=== PATIENT | female | born 1960 | race Caucasian/White ===

== ENCOUNTER 2016-08-28 11:41 | Inpatient (IN) | payer MEDICAID ==
[2016-08-28] VITALS (13 sets, daily range): BP systolic 98–150; BP diastolic 40–136
[~2016-08-28] VITALS: Ht 160 cm; Wt 61.2 kg
--- NOTE | 2016-08-28 11:58 | NUR ---
TOYA FROM HOME DT HIGH BLOOD SUGAR. PER REPORT PATIENT IS DIABETIC AND HAS NOT BEEN COMLIANT WITH INSULIN, PATIENT IS AWAKE, HOWEVER PT APPEARS IN MILD DISTRESS. SATING 100% ON ROOM AIR. SKIN IS WARM TO TOUCH AND NON DIAPHORETIC. PATIENT IS AFEBRILE. VSS. GOWNED AND PLACED PT ON TELE MONITOR,. PEDGOYO FOOTE
[2016-08-28] MEDS ORDERED: IV NS 0.9% 1,000 ML ONE ×3 (12:41→15:38)
[2016-08-28] MEDS ORDERED: IV NS 0.9% 1,000 ML BAG IV ONE ×4 (13:00→17:30)
--- NOTE | 2016-08-28 13:00 | NUR ---
PT ON BED, VSS
[2016-08-28] MEDS ORDERED: GABA-534 PO (13:47)
[2016-08-28] MEDS ORDERED: METO25TA20 PO (13:47)
[2016-08-28] MEDS ORDERED: TICA90TA PO (13:47)
[2016-08-28] MEDS ORDERED: LEVO112T2 PO (13:47)
[2016-08-28] MEDS ORDERED: DULO20CA18 PO (13:47)
[2016-08-28] MEDS ORDERED: ASPI-991 PO (13:47)
[2016-08-28] MEDS ORDERED: ISOS10TA2 PO (13:47)
[2016-08-28] MEDS ORDERED: ATOR20TA PO (13:47)
--- NOTE | 2016-08-28 13:49 | NUR ---
CALLED NURSING ENTERTAINER OR VARIETY ARTIST FOR M/S BED
[2016-08-28 14:05] LABS: BASOPHILS # (AUTO) 0.1 /CMM (0.0-0.2); BASOPHILS % (AUTO) 0.3 % (0.0-2.0); EOSINOPHILS % (AUTO) 0.1 % (0.0-6.0); HEMATOCRIT 46 % (33-45); LYMPHOCYTES # (AUTO) 1.2 /CMM (0.8-4.8); LYMPHOCYTES % (AUTO) 4.5 % (20.0-44.0); MEAN CORPUSCULAR HEMOGLOBIN 30 PG (26.0-33.0); MEAN CORPUSCULAR HGB CONC 33 g/dl (31.0-36.0); MEAN CORPUSCULAR VOLUME 92 fL (82-100); MONOCYTES # (AUTO) 1.8 /CMM (0.1-1.30); MONOCYTES % (AUTO) 6.6 % (2.0-12.0); NEUTROPHILS # (AUTO) 24.4 /CMM (1.8-8.9); NEUTROPHILS % (AUTO) 88.5 % (43.0-81.0); PLATELET COUNT (AUTO) 433 /CMM (150-450); RDW COEFFICIENT OF VARIATION 12.9 (11.5-15.0); RED BLOOD CELL COUNT(AUTO) 4.96 MIL/uL (4.0-5.2); WHITE BLOOD COUNT (AUTO) 27.5 K/uL (4.3-11.0)
[2016-08-28 14:21] LABS: ALBUMIN 4.3 g/dL (3.4-5.0); BILIRUBIN,DIRECT 0.2 mg/dL (0.0-0.2); BILIRUBIN,TOTAL 1.2 mg/dL (0.2-1.0); CALCIUM, SERUM 9.6 mg/dL (8.5-10.1); TOTAL PROTEIN, SERUM 7.5 g/dL (6.4-8.2)
[2016-08-28 14:29] LABS: TROPONIN I 4.242 ng/mL (0.00-0.056)
[2016-08-28 14:32] LABS: CREATININE 1.5 mg/dL (0.6-1.3)
[2016-08-28 14:36] LABS: POTASSIUM 5.4 mmol/L (3.5-5.1); PROTHROMBIN TIME 10.7 SECS (9.5-12.7)
[2016-08-28] MEDS ORDERED: ASPIRIN 81 MG TAB.CHEW ONE (14:51)
[2016-08-28] MEDS ORDERED: CEFTRIAXONE 1GM BAG (ER ONLY) 50 ML IV ONE ×2 (14:51→15:00)
[2016-08-28] MEDS ORDERED: IV SET PRIMARY PUMP SET 1 EA INFUS.SET MC ONE ×3 (14:52→19:55)
[2016-08-28] MEDS ORDERED: ASPIRIN 81 MG TAB.CHEW PO ONE (15:00)
--- NOTE | 2016-08-28 15:21 | NUR ---
ICU OVERFLOW 103
[2016-08-28] MEDS ORDERED: INSULIN REGULAR, HUMAN 100 UNIT in IV NS 0.9% 99 ML IV PRN ×4 (15:30→16:30)
--- NOTE | 2016-08-28 15:31 | NUR ---
REPORT GIVEN TO ZELDA PEREZ FOR CONTINUITY OF CARE
[2016-08-28 15:41] LABS: APPEARANCE,URINE SL CLOUDY (CLEAR); BILIRUBIN,URINE NEGATIVE (NEGATIVE); BLOOD, URINE 1+ Ery/uL (NEGATIVE); COLOR,URINE YELLOW (YELLOW); KETONES,URINE 3+ (NEGATIVE); LEUKOCYTE ESTERASE ,URINE NEGATIVE (NEGATIVE); NITRITE, URINE NEGATIVE (NEGATIVE); PH,URINE 5.5 (5.0-8.0); PROTEIN,URINE NEGATIVE (NEGATIVE); UGLUCOSE 3+ mg/dL (NEGATIVE); UROBILINOGEN,URINE 0.2 EU/dL (0.2)
[2016-08-28 15:51] LABS: BACTERIA,URINE None seen /HPF (None Seen); SQUAMOUS EPITHELIAL CELL,UR Few /HPF (None Seen); WBC,URINE 0-2 /HPF (0-3)
--- NOTE | 2016-08-28 15:59 | NUR ---
PATIENT TRASNPORTED TO ICU,. INSULIN DRIPONGOING. VSS.
--- NOTE | 2016-08-28 16:10 | NUR ---
TERRITORY SALES MANAGER RECEIVED PATIENT FROM THE ER. PATIENT IS ALERT ONLY TO SELF. MODERATE ANXIETY AND AGITATION NOTED. AFEBRILE. SINUS TACH ON MONITOR. STABLE BP. INSULIN GTT RUNNING. REPORT RECEIVED. WILL CONTINUE TO MONITOR AND PROVIDE CARE.
[2016-08-28] MEDS ORDERED: IV NS 0.9% 1,000 ML IV PRN ×2 (16:19→19:23)
[2016-08-28] MEDS ORDERED: ONDANSETRON HCL/PF 4 MG/2 ML VIAL IVP PRN (16:30)
[2016-08-28] MEDS ORDERED: Z GUARD REMEDY 2 OZ OINT TP PRN (16:30)
[2016-08-28] MEDS ORDERED: HYDROCODONE/APAP 5/325MG 1 EACH TABLET PO PRN (16:30)
[2016-08-28] MEDS ORDERED: MAG HYDROX/AL HYDROX/SIMETH 30 ML UDC PO PRN (16:30)
[2016-08-28] MEDS ORDERED: IV D5/ 0.9% NACL 1,000 ML IV PRN (16:30)
[2016-08-28] MEDS ORDERED: MAGNESIUM HYDROXIDE 30 ML UDC PO PRN (16:30)
[2016-08-28] MEDS ORDERED: ACETAMINOPHEN 325 MG TABLET PO PRN (16:30)
[2016-08-28] MEDS ORDERED: ZOLPIDEM TARTRATE 5 MG TABLET PO PRN (16:30)
[2016-08-28] MEDS: GABAPENTIN 300 MG CAPSULE PO SCH (17:00)
[2016-08-28] MEDS: TICAGRELOR 90 MG TABLET PO SCH (17:00)
[2016-08-28] MEDS: BLOOD SUGAR DIAGNOSTIC 1 EACH STRIP IN SCH ×7 (17:12→23:00)
[2016-08-28] MEDS ORDERED: SODIUM BICARBONATE SYR 50 MEQ/50 ML DISP.SYRIN IV ONE ×3 (17:30→23:30)
[2016-08-28] MEDS ORDERED: ENOXAPARIN SODIUM 40 MG/0.4 ML DISP.SYRIN SQ SCH (18:00)
[2016-08-28 18:18] LABS: CALCIUM, SERUM 8.3 mg/dL (8.5-10.1); CREATININE 1.3 mg/dL (0.6-1.3); POTASSIUM 4.4 mmol/L (3.5-5.1)
--- NOTE | 2016-08-28 18:41 | NUR ---
DISTRICT MANAGER PATIENT NOTED TO BE ON RESPIRATORY DISTRESS. PATIENT NOTED TO HAVE PINKISH SECRETIONS FROM THE MOUTH. O2 SATURATION NOTED TO BE IN MID 80S DESPITE NASOTRACHEAL SUCTIONING. STAT ABG ORDERED. RECEIVED ORDERS FROM MD FOR INTUBATION DUE TO ABNORMAL ABG.
--- NOTE | 2016-08-28 19:01 | NUR ---
ROLL WINDER PATIENT WAS TRANSFERRED TO MAIN ICU UNIT INTUBATED ON ACLS PROTOCOL. NO COMPLICATIONS DURING TRANSFER. REPORT GIVEN TO RECEIVING RN FOR CONTINUITY OF CARE.
[2016-08-28] MEDS ORDERED: ETOMIDATE 2 MG/ML VIAL IV ONE (19:45)
[2016-08-28] MEDS ORDERED: ROCURONIUM BROMIDE 50 MG/5 ML IV ONE (19:45)
[2016-08-28] MEDS ORDERED: HEPARIN SODIUM, PORCINE 5000 UNITS/1 ML VIAL IV ONE (20:00)
[2016-08-28] MEDS: HEPARIN INFUSION/D5W 500 ML IV PRN (20:26)
[2016-08-28] MEDS: PROPOFOL 100 ML IV PRN (20:44)
--- NOTE | 2016-08-28 21:00 | NUR ---
MIXER OPERATOR VACUUM PAN SALT NOTES RECEIVED PT IN BED, S/P INTUBATION. SEDATED. ON VENT VIA 7.5 ETT, 23 CM AT LIP. TELE READS ST AT 114 BPM. OGT INSERTED AND VERIFIED BY 2ND RN. SIMMONS CATH IN PLACE, DRAINING WELL. IV SITES AT LEFT AC 20G AND RIGHT AC 18G. RUNNING DIPRIVAN, HEPARIN AND INSULIN. INSULIN RATE FORMULA IS (BG x 1.5)/100 UNITS/HR. HEPARIN TITRATION ACCORDING TO ACS PROTOCOL. HOB ELEVATED, SIDE RAILS X3, TURNED AND REPOSITIONED. BODY TEMP OF 96.0, DIONY HUGGER IN PLACE. BILATERAL SOFT WRIST IN PLACE FOR SAFETY.
[2016-08-28] MEDS: ATORVASTATIN 10 MG TABLET PO SCH (21:29)
--- NOTE | 2016-08-28 21:29 | NUR ---
PT INTUBATED BY MIRIAN COOPER WITH A 7.5 ETT @23CM DUE TO DECREASED SPO2 AND POST ABG RESULTS. AMBU BAG AT BEDSIDE ALARMS SET AND AUDIBLE. SUCTIONED A MODERATE AMOUNT OF FROTHY PINK SECRETIONS BREATH SOUNDS EQUAL BILATERAL COARSE PT RECEIVING NO BREATHING TX AT THIS TIME Addendum: 08/28/16 at 2131 by IAN CHAVEZ RT Amended: Links added.
--- NOTE | 2016-08-28 22:00 | NUR ---
PLATING FOREMAN NOTES US TECH AT BEDSIDE, ABD US IN PROGRESS,
[2016-08-28 22:12] LABS: POTASSIUM 4.2 mmol/L (3.5-5.1)
[2016-08-28 22:13] LABS: CREATININE 1.2 mg/dL (0.6-1.3)
[2016-08-28 22:34] LABS: ABG OXYGEN SATURATION 92.9 % (92.0-98.5); ABG PCO2 30.6 mmHg (35.0-45.0); ABG PH 7.176 (7.350-7.450); ABG PO2 63.7 mmHg (75.0-100.0); AaDO2 330.4 mmHg; COHb 1.3 % (0.5-1.5); MetHb 0.7 % (0.0-1.5); PEEP,BG 5 cm H2O; SITE, ABG Right Radial; VENT MODE, BG AC 16 450 60% +5; VT, ABG 450 mL
--- NOTE | 2016-08-28 23:00 | NUR ---
CANDY POLISHER NOTES CONTACTED DR FAROOQ AND MADE AWARE OF AGB AND BLOOD GLUCOSE LEVELS. 2 AMPS OF BICARB PUSH AND D5 1/2NS AT 75 ML/HR IF BLOOD GLUCOSE <250 MG/DL ORDERED.
[2016-08-28] MEDS ORDERED: SODIUM BICARBONATE SYR 50 MEQ/50 ML DISP.SYRIN ONE (23:04)
[2016-08-28] MEDS ORDERED: IV NS 0.9% 250 ML IV PRN (23:30)
[2016-08-28] MEDS ORDERED: IV D5/0.45 NACL 1,000 ML IV PRN (23:30)
[2016-08-29] VITALS (87 sets, daily range): BP systolic 82–134; BP diastolic 35–59
[2016-08-29] MEDS ORDERED: IV D5/0.45 NACL 1,000 ML IV ONE (00:18)
[2016-08-29] MEDS: BLOOD SUGAR DIAGNOSTIC 1 EACH STRIP IN SCH ×12 (00:28→17:19)
--- NOTE | 2016-08-29 02:44 | NUR ---
CUSTOMER ACCOUNT SPECIALIST NOTES 05/01/16 0230 PTT: 64. NO HEPARIN RATE CHANGE. Addendum: 08/29/16 at 0253 by RAYNE RIVERA RN DATE CORRECTION: 08/29/16
[2016-08-29 02:45] LABS: CALCIUM, SERUM 7.9 mg/dL (8.5-10.1); CREATININE 1.2 mg/dL (0.6-1.3); POTASSIUM 4.6 mmol/L (3.5-5.1)
[2016-08-29 04:50] LABS: EOSINOPHILS % (AUTO) 0.1 % (0.0-6.0); HEMATOCRIT 45 % (33-45); HEMOGLOBIN 15.3 g/dL (11.5-14.8); LYMPHOCYTES # (AUTO) 0.4 /CMM (0.8-4.8); LYMPHOCYTES % (AUTO) 3.7 % (20.0-44.0); MEAN CORPUSCULAR HEMOGLOBIN 30 PG (26.0-33.0); MEAN CORPUSCULAR HGB CONC 34 g/dl (31.0-36.0); MEAN CORPUSCULAR VOLUME 90 fL (82-100); MONOCYTES # (AUTO) 0.4 /CMM (0.1-1.30); MONOCYTES % (AUTO) 3.4 % (2.0-12.0); NEUTROPHILS # (AUTO) 10.3 /CMM (1.8-8.9); NEUTROPHILS % (AUTO) 92.8 % (43.0-81.0); PLATELET COUNT (AUTO) 260 /CMM (150-450); RDW COEFFICIENT OF VARIATION 13.6 (11.5-15.0); RED BLOOD CELL COUNT(AUTO) 5.06 MIL/uL (4.0-5.2); WHITE BLOOD COUNT (AUTO) 11.1 K/uL (4.3-11.0)
[2016-08-29 05:23] LABS: ALBUMIN 2.5 g/dL (3.4-5.0); BILIRUBIN,TOTAL 0.7 mg/dL (0.2-1.0); CALCIUM, SERUM 8.2 mg/dL (8.5-10.1); CREATININE 1.3 mg/dL (0.6-1.3); MAGNESIUM 1.5 mg/dL (1.8-2.4); PHOSPHORUS 1.1 mg/dL (2.5-4.9); POTASSIUM 3.2 mmol/L (3.5-5.1); TOTAL PROTEIN, SERUM 5.3 g/dL (6.4-8.2)
--- NOTE | 2016-08-29 06:00 | NUR ---
FAMILY CONTACTS NATHALIA (DAUGHTER) [phone] MARICEL () [phone]
--- NOTE | 2016-08-29 07:30 | NUR ---
ETHNOLOGY TEACHER PATIENT IS IN BED. RESTING COMFORTABLY. SEDATED ON DIPRIVAN. INSULIN GTT TITRATED PER PROTOCOL. AFEBRILE. SINUS TACH ON MONITOR. SIMMONS DRAINING TO GRAVITY. TURNED AND REPOSITIONED FOR COMFORT AND WOUND PREVENTION. WILL CONTINUE TO MONITOR AND PROVIDE CARE.
--- NOTE | 2016-08-29 07:46 | NUR ---
CRITICAL LAB TROPONIN 63.422 RECVD ON BEHALF OF PRIMARY RN. DR. FAROOQ ON THE UNIT, RELAYED THE LAB TO HIM AND HE ORDERS FOR STAT EKG. ORDER PLACED AND I NOTIFIED RT ON THE UNIT WHO STATES HE WILL DO THE EKG ONCE THEY ARE DONE WITH LINE PLACEMENT. CURRENTLY PT IS STERILE DRAPED AND IN THE MIDDLE OF PICC INSERTION. DR. FAROOQ AWARE.
[2016-08-29] MEDS ORDERED: FUROSEMIDE 20 MG/2 ML VIAL IV ONE (08:00)
[2016-08-29] MEDS ORDERED: POTASSIUM PHOSPHATE MM 15 MMOL in IV D5W 250 ML IV SCH (08:00)
[2016-08-29] MEDS ORDERED: IV SET PRIMARY PUMP SET 1 EA INFUS.SET MC ONE ×3 (08:09→09:28)
[2016-08-29] MEDS: LEVOTHYROXINE SODIUM 112 MCG TABLET PO SCH (08:10)
[2016-08-29] MEDS: ASPIRIN EC 81 MG TABLET.DR PO SCH (08:10)
[2016-08-29] MEDS: GABAPENTIN 300 MG CAPSULE PO SCH ×3 (08:10→17:24)
[2016-08-29] MEDS: PANTOPRAZOLE 40 MG VIAL IV SCH (08:10)
[2016-08-29] MEDS: PROPOFOL 100 ML IV PRN ×2 (08:14→17:24)
[2016-08-29] MEDS: TICAGRELOR 90 MG TABLET PO SCH ×2 (08:15→17:24)
[2016-08-29 08:29] LABS: ABG BASE EXCESS -2.3 mmol/L; ABG OXYGEN SATURATION 96.4 % (92.0-98.5); ABG PCO2 31.6 mmHg (35.0-45.0); ABG PH 7.438 (7.350-7.450); ABG PO2 78.4 mmHg (75.0-100.0); AaDO2 206.5 mmHg; MetHb 0.6 % (0.0-1.5); O2Hb 94.9 % (94.0-97.0); PEEP,BG 5 cm H2O; SITE, ABG Right Radial; VT, ABG 450 mL
--- NOTE | 2016-08-29 08:51 | NUR ---
SENIOR MANAGEMENT CONSULTANT CLARIFIED WITH THE MANAGER ED THAT PATIENT IS TO RECEIVE ONLY ONE DOSE OF LASIX 40MG. DUPLICATE ORDER BY DRAW IN HAND WAS NOT ADMINISTERED. MANAGER ED AWARE.
[2016-08-29] MEDS ORDERED: METOPROLOL TARTRATE 25 MG TABLET PO SCH (09:00)
[2016-08-29] MEDS ORDERED: ISOSORBIDE DINITRATE (10MG) 10 MG TABLET PO SCH (09:00)
[2016-08-29] MEDS ORDERED: DEXTROSE 50%-WATER 50 ML DISP.SYRIN IV PRN (09:00)
[2016-08-29] MEDS: DULOXETINE HCL 20 MG CAPSULE.DR PO SCH (09:00)
[2016-08-29] MEDS ORDERED: FUROSEMIDE 40 MG/4 ML VIAL IV SCH (09:00)
[2016-08-29] MEDS: INSULIN NPH, HUMAN ISOPHANE 100 UNIT/ML VIAL SQ SCH ×2 (09:30→17:24)
[2016-08-29] MEDS: POTASSIUM PHOSPHATE MM 7.5 MMOL in IV D5W 100 ML IV SCH ×2 (09:30→13:38)
[2016-08-29] MEDS: POTASSIUM CL. PREMIX PERIPHER. 50 ML IV SCH ×4 (09:33→13:38)
[2016-08-29 11:04] LABS: BAND % (MANUAL) 22 % (0.0-5.0); LYMPHOCYTES % (MANUAL) 5 % (16-48); MONOCYTES % (MANUAL) 4 % (0-11.0); NEUTROPHILS % (MANUAL) 69 (42-76)
[2016-08-29] MEDS: Sodium Chloride 77 MEQ in IV 10% DEXTROSE 1,000 ML IV PRN (11:20)
[2016-08-29] MEDS ORDERED: SECONDARY IV SET 1 EA INFUS.SET MC ONE (12:11)
[2016-08-29] MEDS: Magnesium 1GM/D5W 100ML PREMIX 100 ML IV SCH ×2 (12:16→13:38)
[2016-08-29] MEDS: INSULIN REGULAR, HUMAN 100 UNIT/ML 3 ML VIAL SQ PRN ×2 (12:17→17:23)
[2016-08-29] MEDS: CEFTRIAXONE 1 G in IV D5W 50 ML IV SCH (14:18)
[2016-08-29] MEDS: HEPARIN INFUSION/D5W 500 ML IV PRN (20:25)
--- NOTE | 2016-08-29 20:56 | NUR ---
INSURANCE ADVISER NOTES RECEIVED PT IN BED, S/P INTUBATION. SEDATED. ON VENT VIA 7.5 ETT, 23 CM AT LIP. TELE READS ST AT [address] AND CLAMPED[address] SIMMONS CATH IN PLACE, DRAINING WELL. IV SITES AT LEFT AC 20G AND RIGHT AC 18G. PICC AT [place]. RUNNING DIPRIVAN, HEPARIN AND D10 1/2NS. HEPARIN TITRATION ACCORDING TO ACS PROTOCOL, CURRENTLY 900 UNITS/HR. HOB ELEVATED, SIDE RAILS X3, TURNED AND REPOSITIONED. BODY TEMP OF 98.5. BILATERAL SOFT WRIST IN PLACE FOR SAFETY.
[2016-08-29] MEDS: ATORVASTATIN 10 MG TABLET PO SCH (21:00)
--- NOTE | 2016-08-29 22:05 | NUR ---
PT RECEIVED INTUBATED WITH 7.5 ETT SECURED AT 23CM AT THE LIP. NO RESP DISTRESS NOTED. PT TOLERATING VENT SETTINGS. SX'D FOR SML AMT OF THICK WHITE SECRETIONS. VENT ALARMS SET AND AUDIBLE. CORNELL SETH AT [facility]. WILL CONTINUE TO MONITOR. Addendum: 08/29/16 at 2206 by MARIAJOSE TENA RT Amended: Links added.
[2016-08-30] VITALS (54 sets, daily range): BP systolic 83–127; BP diastolic 39–66
[2016-08-30] MEDS: BLOOD SUGAR DIAGNOSTIC 1 EACH STRIP IN SCH ×3 (00:09→12:17)
[2016-08-30] MEDS: INSULIN REGULAR, HUMAN 100 UNIT/ML 3 ML VIAL SQ PRN ×3 (00:11→12:19)
[2016-08-30 03:28] LABS: BASOPHILS % (AUTO) 0.2 % (0.0-2.0); EOSINOPHILS % (AUTO) 0.5 % (0.0-6.0); HEMATOCRIT 39 % (33-45); LYMPHOCYTES # (AUTO) 0.7 /CMM (0.8-4.8); LYMPHOCYTES % (AUTO) 7.3 % (20.0-44.0); MEAN CORPUSCULAR HEMOGLOBIN 30 PG (26.0-33.0); MEAN CORPUSCULAR HGB CONC 34 g/dl (31.0-36.0); MEAN CORPUSCULAR VOLUME 90 fL (82-100); MONOCYTES # (AUTO) 0.5 /CMM (0.1-1.30); MONOCYTES % (AUTO) 5.4 % (2.0-12.0); NEUTROPHILS # (AUTO) 8.8 /CMM (1.8-8.9); NEUTROPHILS % (AUTO) 86.6 % (43.0-81.0); PLATELET COUNT (AUTO) 170 /CMM (150-450); RDW COEFFICIENT OF VARIATION 13.9 (11.5-15.0); RED BLOOD CELL COUNT(AUTO) 4.35 MIL/uL (4.0-5.2); WHITE BLOOD COUNT (AUTO) 10.2 K/uL (4.3-11.0)
--- NOTE | 2016-08-30 04:00 | NUR ---
HYPERION ESSBASE DEVELOPER NOTES 08/30/16 0400 PTT: 77. HEPARIN RATE DECREASED BY 50 UNITS/HR. NEW RATE 850 UNITS/HR. PTT ORDERED AT 1000.
[2016-08-30 04:08] LABS: CALCIUM, SERUM 7.6 mg/dL (8.5-10.1); CREATININE 1.1 mg/dL (0.6-1.3); POTASSIUM 3.1 mmol/L (3.5-5.1)
[2016-08-30 04:12] LABS: MAGNESIUM 2.6 mg/dL (1.8-2.4); PHOSPHORUS 1.6 mg/dL (2.5-4.9)
[2016-08-30 04:22] LABS: TROPONIN I 28.275 ng/mL (0.00-0.056)
--- NOTE | 2016-08-30 08:10 | NUR ---
FINGERPRINT EXPERT RECEIVED PATIENT FROM THE PREVIOUS SHIFT. PATIENT IS IN BED. RESTING COMFORTABLY. NO DISTRESS NOTED. VENT SETTINGS REVIEWED AND VERIFIED. DURING 15 MINUTES SEDATION VACATION, PATIENT OPENED BOTH HER EYES ON HER OWN. UNABLE TO FOLLOW SIMPLE COMMANDS AT THIS TIME. PATIENT TRIED TO REACH HER ETT WITH BOTH HANDS. PATIENT MOVED BOTH HER LEGS AT THIS TIME. PATIENT NOTED TO BE TACHYPNEIC DURING THE SEDATION.
[2016-08-30] MEDS ORDERED: IV SET PRIMARY PUMP SET 1 EA INFUS.SET MC ONE (08:30)
[2016-08-30] MEDS: POTASSIUM CL. PREMIX PERIPHER. 50 ML IV SCH ×4 (08:39→11:01)
--- NOTE | 2016-08-30 08:40 | NUR ---
PATIENT REC'D ORALLY INTUBATED ON [facility] VENT WITH SETTINGS SET PER MD WALDO ORELLANA. VENT ALARMS CHECKED + AUDIBLE. CUFF PRESSURE CHECKED ENVIRONMENTAL SERVICES TECH. ETT SECURE AND IN PROPER POSITION. VENT PLUGGED INTO RED OUTLET. B/S DIM COARSE. SX'D WITH SM/MD OLIVOT PALE SEMITHICK SECRETIONS. PATIENT IN CRITICAL CONDITION. AMBU BAG AT [facility]. CONT CURRENT PLAN OF RESP CARE. Addendum: 08/30/16 at 1404 by LILI REYNA RT Amended: Links added.
[2016-08-30] MEDS: TICAGRELOR 90 MG TABLET PO SCH (08:43)
[2016-08-30] MEDS: PROPOFOL 100 ML IV PRN (08:43)
[2016-08-30] MEDS: GABAPENTIN 300 MG CAPSULE PO SCH ×2 (08:44→12:17)
[2016-08-30] MEDS: LEVOTHYROXINE SODIUM 112 MCG TABLET PO SCH (08:44)
[2016-08-30] MEDS: ASPIRIN EC 81 MG TABLET.DR PO SCH (08:44)
[2016-08-30] MEDS: PANTOPRAZOLE 40 MG VIAL IV SCH (08:44)
[2016-08-30] MEDS: DULOXETINE HCL 20 MG CAPSULE.DR PO SCH (08:44)
[2016-08-30 08:49] LABS: ABG BASE EXCESS 0.3 mmol/L; ABG OXYGEN SATURATION 97.7 % (92.0-98.5); ABG PCO2 34.1 mmHg (35.0-45.0); ABG PH 7.458 (7.350-7.450); ABG PO2 108.9 mmHg (75.0-100.0); AaDO2 173.2 mmHg; COHb 0.9 % (0.5-1.5); MetHb 0.8 % (0.0-1.5); PEEP,BG 5 cm H2O; SITE, ABG Right Radial; VT, ABG 450 mL
[2016-08-30] MEDS ORDERED: INSULIN NPH, HUMAN ISOPHANE 100 UNIT/ML VIAL SQ SCH (09:00)
[2016-08-30] MEDS: Potassium Phosphate meq 11 MEQ in IV D5W 100 ML IV SCH ×2 (10:26→12:17)
[2016-08-30] MEDS: Sodium Chloride 77 MEQ in IV 10% DEXTROSE 1,000 ML IV PRN (13:24)
[2016-08-30] MEDS: CEFTRIAXONE 1 G in IV D5W 50 ML IV SCH (14:37)
--- NOTE | 2016-08-30 15:57 | NUR ---
CARTOON ANIMATOR PATIENT PREPARED FOR TRANSFER. PATIENT IS UNABLE TO SIGN FOR SELF FOR BELONGINGS. UNABLE TO REMOVE THE LEFT HAND RING AT THIS TIME. CHARGE NURSE AND RN SIGNED FOR BELONGINGS. DAUGHTER NATHALIA MADE AWARE. WILL MONITOR.
--- NOTE | 2016-08-30 16:03 | NUR ---
FOUNDATION RELATIONS MANAGER PATIENT LEFT THE FACILITY IN STABLE CONDITIONS.
== END 2016-08-30 16:03 | disposition short-term general hospital (02) | DRG 190 ==
LOC: ER 11:42 → ICUOV 15:40 → ICU 18:57
PROVIDERS: ADMIT Internal Medicine; ATTEND Internal Medicine
PROC: 0BH17EZ Insertion of Endotracheal Airway into Trachea, Via Natural or Artificial Opening (ICD-10-PCS; principal; 2016-08-28)
PROC: 5A1945Z Respiratory Ventilation, 24-96 Consecutive Hours (ICD-10-PCS; principal; 2016-08-28)
PROC: B548ZZA Ultrasonography of Superior Vena Cava, Guidance (ICD-10-PCS; 2016-08-29)
PROC: 02HV33Z Insertion of Infusion Device into Superior Vena Cava, Percutaneous Approach (ICD-10-PCS; 2016-08-29)
DX: I21.4 Non-ST elevation (NSTEMI) myocardial infarction (principal); N17.0 Acute kidney failure with tubular necrosis; J96.01 Acute respiratory failure with hypoxia; I50.21 Acute systolic (congestive) heart failure; G93.41 Metabolic encephalopathy; J18.9 Pneumonia, unspecified organism; E13.10 Other specified diabetes mellitus with ketoacidosis without coma; I11.0 Hypertensive heart disease with heart failure; K80.10 Calculus of gallbladder with chronic cholecystitis without obstruction; D72.829 Elevated white blood cell count, unspecified; E03.9 Hypothyroidism, unspecified; E78.5 Hyperlipidemia, unspecified; E83.39 Other disorders of phosphorus metabolism; F17.200 Nicotine dependence, unspecified, uncomplicated; I25.10 Atherosclerotic heart disease of native coronary artery without angina pectoris; Z79.899 Other long term (current) drug therapy; I50.1 Left ventricular failure, unspecified
CPT/HCPCS: 31720; 36415; 36600; 71010-TC; 76700-TC; 80048-TC; 80053-TC; 80061-TC; 80076-TC; 81000-TC; 82803-TC; 82962-TC; 83605-TC; 83690-TC; 83735-TC; 84100-TC; 84484-TC; 85025-TC; 85730-TC; 87040-TC; 87081-TC; 87086-TC; 93307-TC; 94002-TC; 94003-TC; 94762-TC; 99082-TC; A4606; C1751; C9113; J0696; J1644; J1650; J1815; J1940; J3475; J3480; J3490; J7030; J7060; Z7610

== ENCOUNTER 2023-10-09 19:37 | Emergency (ER) | payer MEDICAID, OTHER ==
[~2023-10-09] VITALS: Ht 154.9 cm; Wt 61.7 kg
[2023-10-09 20:40] LABS: BASOPHILS # (AUTO) 0.1 K/uL (0.0-0.2); BASOPHILS % (AUTO) 1.2 % (0.0-2.0); EOSINOPHILS # (AUTO) 0.2 K/uL (0.0-0.7); EOSINOPHILS % (AUTO) 5.2 % (0.0-6.0); HEMATOCRIT 37 % (33-45); LYMPHOCYTES # (AUTO) 1.1 K/uL (0.8-4.8); LYMPHOCYTES % (AUTO) 22.8 % (20.0-44.0); MEAN CORPUSCULAR HEMOGLOBIN 29 PG (26.0-33.0); MEAN CORPUSCULAR HGB CONC 33 g/dl (31.0-36.0); MEAN CORPUSCULAR VOLUME 87 fL (82-100); MONOCYTES # (AUTO) 0.4 K/uL (0.1-1.30); NEUTROPHILS # (AUTO) 2.9 K/uL (1.8-8.9); NEUTROPHILS % (AUTO) 61.8 % (43.0-81.0); PLATELET COUNT (AUTO) 253 K/uL (150-450); RED BLOOD CELL COUNT(AUTO) 4.19 MIL/uL (4.0-5.2); RED CELL DISTRIBUTION WIDTH 15.6 % (11.5-15.0); WHITE BLOOD COUNT (AUTO) 4.8 K/uL (4.3-11.0)
[2023-10-09 21:01] LABS: CHLORIDE 103 mmol/L (98-107); SODIUM SERUM 135 mmol/L (136-145)
[2023-10-09 21:04] LABS: CARBON DIOXIDE 25 mmol/L (21-32); GLUCOSE 226 mg/dL (74-106)
[2023-10-09 21:10] LABS: ALANINE AMINOTRANSFERASE 20 U/L (12-78); ALBUMIN 3.3 g/dL (3.4-5.0); ALKALINE PHOSPHATASE 146 U/L (46-116); ASPARTATE AMINOTRANSFERASE 15 U/L (15-37); BILIRUBIN,DIRECT 0.2 mg/dL (0.0-0.2); BILIRUBIN,TOTAL 0.6 mg/dL (0.2-1.0); CREATININE 0.8 mg/dL (0.6-1.3); TOTAL PROTEIN, SERUM 6.4 g/dL (6.4-8.2); UREA NITROGEN, BLOOD 13 mg/dL (7-18)
[2023-10-10 04:59] VITALS: BP 127/59; TEMP 97.9; O2SAT 97
== END 2023-10-10 04:59 | disposition short-term general hospital (02) ==
LOC: ER 19:40
DX: I25.10 Atherosclerotic heart disease of native coronary artery without angina pectoris (principal); R07.9 Chest pain, unspecified; I10 Essential (primary) hypertension; E11.9 Type 2 diabetes mellitus without complications; Z95.1 Presence of aortocoronary bypass graft; Z60.2 Problems related to living alone
CPT/HCPCS: 36415; 71045-TC; 80048-TC; 80076-TC; 82962-TC; 84484-TC; 85025-TC

== ENCOUNTER 2023-10-30 19:48 | Emergency (ER) | payer MEDICAID, OTHER ==
[~2023-10-30] VITALS: Ht 152.4 cm; Wt 61.7 kg
[2023-10-30 20:16] VITALS: TEMP 98.3
[2023-10-30 20:29] LABS: BASOPHILS % (AUTO) 0.8 % (0.0-2.0); EOSINOPHILS # (AUTO) 0.3 K/uL (0.0-0.7); EOSINOPHILS % (AUTO) 5.3 % (0.0-6.0); HEMATOCRIT 35 % (33-45); HEMOGLOBIN 11.5 g/dL (11.5-14.8); LYMPHOCYTES # (AUTO) 1.1 K/uL (0.8-4.8); LYMPHOCYTES % (AUTO) 18.3 % (20.0-44.0); MEAN CORPUSCULAR HEMOGLOBIN 29 PG (26.0-33.0); MEAN CORPUSCULAR HGB CONC 33 g/dl (31.0-36.0); MEAN CORPUSCULAR VOLUME 89 fL (82-100); MONOCYTES # (AUTO) 0.5 K/uL (0.1-1.30); MONOCYTES % (AUTO) 9.3 % (2.0-12.0); NEUTROPHILS # (AUTO) 3.8 K/uL (1.8-8.9); NEUTROPHILS % (AUTO) 66.3 % (43.0-81.0); PLATELET COUNT (AUTO) 263 K/uL (150-450); RED BLOOD CELL COUNT(AUTO) 3.94 MIL/uL (4.0-5.2); RED CELL DISTRIBUTION WIDTH 15.3 % (11.5-15.0); WHITE BLOOD COUNT (AUTO) 5.8 K/uL (4.3-11.0)
[2023-10-30 20:53] LABS: CALCIUM, SERUM 9.1 mg/dL (8.5-10.1); CARBON DIOXIDE 27 mmol/L (21-32); CHLORIDE 102 mmol/L (98-107); CREATININE 0.8 mg/dL (0.6-1.3); GLUCOSE 205 mg/dL (74-106); NT-PRO BNP 564 pg/mL (0-125); POTASSIUM 3.2 mmol/L (3.5-5.1); SODIUM SERUM 139 mmol/L (136-145); UREA NITROGEN, BLOOD 11 mg/dL (7-18)
[2023-10-30 20:54] LABS: THYROID STIMULATING HORMONE 1.83 uIU/mL (0.358-3.74)
[2023-10-30 21:00] LABS: MAGNESIUM 1.6 mg/dL (1.8-2.4)
[2023-10-30] MEDS ORDERED: MAG HYDROX/AL HYDROX/SIMETH 30 ML UDC ONE (21:20)
[2023-10-30] MEDS ORDERED: PANTOPRAZOLE 40 MG TABLET.DR PO ONE (21:20)
[2023-10-30] MEDS ORDERED: LIDOCAINE VISCOUS 2% UD 15 ML UDC ONE (21:20)
[2023-10-30] MEDS: PANTOPRAZOLE 40 MG TABLET.DR PO ONE (21:27)
[2023-10-30] MEDS: MAG HYDROX/AL HYDROX/SIMETH 30 ML UDC PO ONE (21:27)
[2023-10-30] MEDS: LIDOCAINE VISCOUS 2% UD 15 ML UDC MM ONE (21:27)
[2023-10-30] MEDS ORDERED: INSULIN GLARGINE,BASAGLAR 100 UNIT/ML INSULN.PEN SQ SCH (21:30)
[2023-10-31] MEDS ORDERED: INSULIN REGULAR, HUMAN 100 UNIT/ML 10 ML VIAL ONE (00:36)
[2023-10-31] MEDS: INSULIN REGULAR, HUMAN 100 UNIT/ML 10 ML VIAL IV ONE (00:41)
[2023-10-31 03:00] VITALS: BP 139/46; O2SAT 96
== END 2023-10-31 05:40 | disposition left against medical advice (07) ==
LOC: ER 19:50
DX: R07.89 Other chest pain (principal); I25.10 Atherosclerotic heart disease of native coronary artery without angina pectoris; I10 Essential (primary) hypertension; J44.9 Chronic obstructive pulmonary disease, unspecified; E10.40 Type 1 diabetes mellitus with diabetic neuropathy, unspecified; Z86.59 Personal history of other mental and behavioral disorders; Z95.5 Presence of coronary angioplasty implant and graft; Z60.2 Problems related to living alone; Z20.822 Contact with and (suspected) exposure to COVID-19
CPT/HCPCS: 99285; 71045; 93005; 85025; 80048; 83735; 36415; 84439; 84443; 84484 ×2; 83880; 87426; 82962; J1815

== ENCOUNTER 2023-11-05 12:52 | Emergency (ER) | payer MEDICAID, OTHER ==
[~2023-11-05] VITALS: Ht 152.4 cm; Wt 65.3 kg
[2023-11-05] MEDS ORDERED: IV NS 0.9% 500 ML BAG IV ONE (13:00)
--- NOTE | 2023-11-05 13:00 | NUR ---
TOYA 79 FROM HOME FOR CP AND PRESSURE X 3 HRS AGO.
[2023-11-05 13:05] VITALS: TEMP 98.8
--- NOTE | 2023-11-05 13:15 | NUR ---
BLOOD DRAWN AND SENT TO LAB
--- NOTE | 2023-11-05 13:21 | NUR ---
Bed 312-1
--- NOTE | 2023-11-05 13:27 | NUR ---
move sheet submitted (CP, stable, Tele)
[2023-11-05 14:02] LABS: BASOPHILS # (AUTO) 0.1 K/uL (0.0-0.2); EOSINOPHILS # (AUTO) 0.3 K/uL (0.0-0.7); EOSINOPHILS % (AUTO) 4.2 % (0.0-6.0); HEMATOCRIT 37 % (33-45); HEMOGLOBIN 11.8 g/dL (11.5-14.8); LYMPHOCYTES # (AUTO) 0.9 K/uL (0.8-4.8); LYMPHOCYTES % (AUTO) 13.8 % (20.0-44.0); MEAN CORPUSCULAR HEMOGLOBIN 29 PG (26.0-33.0); MEAN CORPUSCULAR HGB CONC 32 g/dl (31.0-36.0); MEAN CORPUSCULAR VOLUME 90 fL (82-100); MONOCYTES # (AUTO) 0.6 K/uL (0.1-1.30); MONOCYTES % (AUTO) 8.4 % (2.0-12.0); NEUTROPHILS % (AUTO) 72.6 % (43.0-81.0); PLATELET COUNT (AUTO) 266 K/uL (150-450); RED BLOOD CELL COUNT(AUTO) 4.08 MIL/uL (4.0-5.2); RED CELL DISTRIBUTION WIDTH 14.8 % (11.5-15.0); WHITE BLOOD COUNT (AUTO) 6.9 K/uL (4.3-11.0)
[2023-11-05 14:09] LABS: CALCIUM, SERUM 8.9 mg/dL (8.5-10.1); CARBON DIOXIDE 29 mmol/L (21-32); CHLORIDE 104 mmol/L (98-107); CREATININE 0.8 mg/dL (0.6-1.3); GLUCOSE 210 mg/dL (74-106); POTASSIUM 3.8 mmol/L (3.5-5.1); SODIUM SERUM 143 mmol/L (136-145); UREA NITROGEN, BLOOD 13 mg/dL (7-18)
--- NOTE | 2023-11-05 14:52 | NUR ---
Peer to Peer with Dr Butler at [place] [phone]
[2023-11-05 15:00] VITALS: BP 121/52; O2SAT 96
--- NOTE | 2023-11-05 15:58 | NUR ---
Fax sent to [employer] [facility] [phone]
--- NOTE | 2023-11-05 16:42 | NUR ---
PT needs to go to [facility] Please give report [phone] HOLLIS is charge master coordinator Waiting for transport information
--- NOTE | 2023-11-05 16:50 | NUR ---
[facility] # [id number] [facility] ETA 45 min Called Marcial rn case mgr to confirm
--- NOTE | 2023-11-05 17:05 | NUR ---
report given to yana charge nurse for er
--- NOTE | 2023-11-05 18:14 | NUR ---
PATIENT PICKED UP BY [facility] STAFF AND REPORT WAS GIVEN FOR TRANSFER TO [facility]
== END 2023-11-05 18:16 | disposition short-term general hospital (02) ==
LOC: ER 12:54
DX: I25.10 Atherosclerotic heart disease of native coronary artery without angina pectoris (principal); R61 Generalized hyperhidrosis; E10.40 Type 1 diabetes mellitus with diabetic neuropathy, unspecified; I10 Essential (primary) hypertension; J44.9 Chronic obstructive pulmonary disease, unspecified; Z95.1 Presence of aortocoronary bypass graft; Z86.59 Personal history of other mental and behavioral disorders; Z60.2 Problems related to living alone
CPT/HCPCS: 99284; 93005; 85025; 80048; 36415; 84484 ×2; 82962; J7040

== ENCOUNTER 2024-04-03 05:17 | Inpatient (IN) | payer OTHER ==
[2024-04-03] VITALS (45 sets, daily range): BP systolic 98–134; BP diastolic 34–65; TEMP 96.9–98; O2SAT 96–100
[~2024-04-03] VITALS: Ht 152.4 cm; Wt 49.9 kg
[2024-04-03] MEDS ORDERED: PIPERACI/TAZO 3.375GM/D5W 50ML PB IV ONE (05:40)
[2024-04-03] MEDS: IV NS 0.9% 1,000 ML BAG IV ONE ×2 (05:44→07:10)
[2024-04-03] MEDS: PIPERACILLIN /TAZOBACTAM 3.375 G in IV D5W 50 ML IV ONE (05:44)
[2024-04-03] MEDS ORDERED: VANCOMYCIN 1 GM /D5W 250 ML PB IV ONE (06:03)
[2024-04-03 06:15] LABS: SITE, VBG RIGHT BRACHIAL; VBG BASE EXCESS -25.8 mmol/L (-2.0-3.0); VBG COHb 0.3 % (0.5-1.5); VBG HCO3 4.2 mmol/L (22.0-29.0); VBG MetHb 0.4 % (0.5-1.5); VBG O2Hb 96.8 % (0-79); VBG OXYGEN SATURATION 97.5 % (60.0-85.0); VBG PCO2 18.1 mmHg (38.0-54.0); VBG PH 6.984 (7.320-7.430); VBG PO2 138.8 mmHg (23.0-48.0); VBG TOTAL HEMOGLOBIN 12.9 G/dL (12.0-16.0)
[2024-04-03 06:22] LABS: APPEARANCE,URINE CLOUDY (CLEAR); BILIRUBIN,URINE 1+ (NEGATIVE); BLOOD, URINE 3+ Ery/uL (NEGATIVE); COLOR,URINE YELLOW (YELLOW); KETONES,URINE 3+ mg/dL (NEGATIVE); LEUKOCYTE ESTERASE ,URINE 2+ (NEGATIVE); NITRITE, URINE NEGATIVE (NEGATIVE); PH,URINE 5.5 (5.0-8.0); PROTEIN,URINE 2+ mg/dl (NEGATIVE); UGLUCOSE 2+ mg/dL (NEGATIVE); UROBILINOGEN,URINE 0.2 EU/dL (0.2)
[2024-04-03] MEDS: ETOMIDATE 2 MG/ML VIAL IV ONE (06:43)
[2024-04-03] MEDS: ROCURONIUM BROMIDE 100 MG/10 ML VIAL IV ONE (06:43)
[2024-04-03 06:49] LABS: ADD URINE CULTURE YES; WBC,URINE 81-100 /HPF (0-3); YEAST,URINE Many /HPF (None Seen)
[2024-04-03 06:50] LABS: BACTERIA,URINE Many /HPF (None Seen); RBC,URINE 21-50 /HPF (0-2)
[2024-04-03 06:51] LABS: SQUAMOUS EPITHELIAL CELL,UR Moderate /HPF (None Seen)
[2024-04-03] MEDS: ACETAMINOPHEN 650 MG/SUPP.RECT RC ONE (07:00)
[2024-04-03] MEDS: VANCOMYCIN 1 GM in IV D5W 250 ML IV ONE (07:00)
[2024-04-03] MEDS ORDERED: ACETAMINOPHEN 650 MG/SUPP.RECT RC ONE (07:07)
[2024-04-03] MEDS: IV NS 0.9% 500 ML BAG IV ONE ×2 (07:10→09:03)
[2024-04-03 07:15] LABS: BASOPHILS # (AUTO) 0.2 K/uL (0.0-0.2); BASOPHILS % (AUTO) 1.1 % (0.0-2.0); EOSINOPHILS # (AUTO) 0.3 K/uL (0.0-0.7); EOSINOPHILS % (AUTO) 1.6 % (0.0-6.0); HEMATOCRIT 22 % (33-45); LYMPHOCYTES # (AUTO) 1.3 K/uL (0.8-4.8); MEAN CORPUSCULAR HEMOGLOBIN 29 PG (26.0-33.0); MEAN CORPUSCULAR HGB CONC 29 g/dl (31.0-36.0); MEAN CORPUSCULAR VOLUME 101 fL (82-100); MONOCYTES # (AUTO) 1.1 K/uL (0.1-1.30); MONOCYTES % (AUTO) 6.1 % (2.0-12.0); NEUTROPHILS # (AUTO) 15.3 K/uL (1.8-8.9); NEUTROPHILS % (AUTO) 84.2 % (43.0-81.0); PLATELET COUNT (AUTO) 266 K/uL (150-450); RED BLOOD CELL COUNT(AUTO) 2.23 MIL/uL (4.0-5.2); WHITE BLOOD COUNT (AUTO) 18.1 K/uL (4.3-11.0)
[2024-04-03 07:17] LABS: ALANINE AMINOTRANSFERASE < 6 U/L (12-78); ALKALINE PHOSPHATASE 54 U/L (46-116); ASPARTATE AMINOTRANSFERASE 10 U/L (15-37); BILIRUBIN,DIRECT 0.1 mg/dL (0.0-0.2); BILIRUBIN,TOTAL 0.4 mg/dL (0.2-1.0); CHLORIDE 120 mmol/L (98-107); CREATININE 0.6 mg/dL (0.6-1.3); GLUCOSE 320 mg/dL (74-106); NT-PRO BNP 481 pg/mL (0-125); SODIUM SERUM 148 mmol/L (136-145); TOTAL PROTEIN, SERUM 2.2 g/dL (6.4-8.2); UREA NITROGEN, BLOOD 16 mg/dL (7-18)
[2024-04-03 07:19] LABS: CARBON DIOXIDE 3 mmol/L (21-32); POTASSIUM 2.3 mmol/L (3.5-5.1)
[2024-04-03 07:20] LABS: CALCIUM, SERUM 4.2 mg/dL (8.5-10.1)
[2024-04-03 07:21] LABS: LACTIC ACID 2.7 mmol/L (0.4-2.0)
[2024-04-03 07:39] LABS: HEMOGLOBIN 6.5 g/dL (11.5-14.8)
[2024-04-03] MEDS ORDERED: POTASSIUM CL. PREMIX PERIPHER. 100 ML ONE (07:43)
[2024-04-03] MEDS: POTASSIUM CL. PREMIX PERIPHER. 50 ML IV SCH ×3 (07:50→23:28)
[2024-04-03] MEDS ORDERED: ASPI-1169 PO (08:22)
[2024-04-03] MEDS ORDERED: TICA90TA PO (08:22)
[2024-04-03] MEDS ORDERED: ATOR20TA PO (08:22)
[2024-04-03] MEDS ORDERED: METO-358 PO (08:22)
[2024-04-03] MEDS ORDERED: ALBU8.5H8 IH (08:22)
[2024-04-03] MEDS ORDERED: INSU100V7 SQ (08:22)
[2024-04-03] MEDS ORDERED: NITR0.4T48 SL (08:22)
[2024-04-03] MEDS ORDERED: AMLO2.5T2 PO (08:22)
[2024-04-03] MEDS ORDERED: METO5TAB87 PO (08:22)
[2024-04-03] MEDS ORDERED: INSU100I34 SQ (08:22)
[2024-04-03] MEDS ORDERED: ONDA4TAB5 PO (08:22)
[2024-04-03] MEDS ORDERED: ISOS20TA8 PO (08:22)
[2024-04-03] MEDS ORDERED: SUCR1TAB PO (08:22)
[2024-04-03] MEDS ORDERED: MAGN400O6 PO (08:22)
[2024-04-03] MEDS ORDERED: FLUT12AE IH (08:22)
[2024-04-03] MEDS ORDERED: LEVO112T5 PO (08:22)
[2024-04-03] MEDS ORDERED: NA P133E RC (08:22)
[2024-04-03] MEDS ORDERED: PANT40TA2 PO (08:22)
[2024-04-03] MEDS ORDERED: RANO500T6 PO (08:22)
[2024-04-03] MEDS ORDERED: GABA300C PO (08:22)
[2024-04-03] MEDS ORDERED: BISA10SU11 RC (08:22)
[2024-04-03 08:48] LABS: ANISOCYTOSIS 1+; BAND % (MANUAL) 3 % (0.0-5.0); EOSINOPHILS % (MANUAL) 5 % (0-4); LYMPHOCYTES % (MANUAL) 7 % (16-48); MONOCYTES % (MANUAL) 1 % (0-11.0); NEUTROPHILS % (MANUAL) 84 (42-76); PLATELET ESTIMATE ADEQUATE
[2024-04-03 09:04] LABS: MAGNESIUM 2.3 mg/dL (1.8-2.4)
[2024-04-03] MEDS: D5W IV STA (09:11)
[2024-04-03] MEDS: SODIUM BICARBONATE IV STA (09:11)
[2024-04-03 09:14] LABS: ABG BASE EXCESS -27.4 mmol/L (-2.0-3.0); ABG OXYGEN SATURATION 99.5 % (94.0-98.0); ABG PCO2 23.7 mmHg (32.0-45.0); ABG PH 6.894 (7.350-7.450); ABG PO2 420.4 mmHg (83.0-108.0); COHb 0.2 % (0.5-1.5); MetHb 0.6 % (0.0-1.5); O2Hb 98.7 % (94.0-97.0); PEEP,BG 5 cm H2O; VT, ABG 400 mL
[2024-04-03] MEDS ORDERED: ONDANSETRON HCL/PF 4 MG/2 ML VIAL IVP PRN (10:00)
[2024-04-03] MEDS ORDERED: MAGNESIUM HYDROXIDE 30 ML UDC PO PRN (10:00)
[2024-04-03] MEDS ORDERED: MAG HYDROX/AL HYDROX/SIMETH 30 ML UDC PO PRN (10:00)
[2024-04-03 10:42] LABS: INR 1.17 (0.91-1.10); PARTIAL THROMBOPLASTIN TIME 29.3 SEC (24.3-34.3); PROTHROMBIN TIME 12.3 SECS (9.2-11.1)
[2024-04-03] MEDS: NOREPINEPHRINE 8 MG in IV D5W 242 ML IV PRN ×2 (10:42→11:55)
[2024-04-03 11:22] LABS: PHOSPHORUS 8.6 mg/dL (2.5-4.9)
[2024-04-03] MEDS: Calcium Gluconate 1GM/10ML 4.65 MEQ in IV NS 0.9% 100 ML IV ONE (11:54)
[2024-04-03] MEDS: CEFEPIME 2 GM in IV D5W 100 ML IV SCH (11:54)
[2024-04-03] MEDS: IV NS 0.9% 1,000 ML IV PRN ×2 (11:56→18:00)
[2024-04-03] MEDS ORDERED: DEXTROSE 50%-WATER 50 ML DISP.SYRIN IV PRN (12:00)
[2024-04-03] MEDS: BLOOD SUGAR DIAGNOSTIC 1 EACH STRIP IN SCH ×2 (12:25→14:08)
[2024-04-03] MEDS: INSULIN REGULAR, HUMAN 100 UNIT/ML 3 ML VIAL SQ PRN (12:27)
[2024-04-03] MEDS: PHENYLEPHRINE 100 MG in IV NS 0.9% 240 ML IV PRN (12:58)
[2024-04-03] MEDS: IV NS 0.9% 500 ML IV ONE (13:43)
[2024-04-03] MEDS: PROPOFOL 100 ML IV PRN (14:39)
[2024-04-03] MEDS: INSULIN REGULAR, HUMAN 100 UNIT in IV NS 0.9% 99 ML IV PRN (14:41)
[2024-04-03] MEDS: SODIUM BICARBONATE SYR 50 MEQ/50 ML DISP.SYRIN IV ONE (15:57)
[2024-04-03 18:45] LABS: ABG BASE EXCESS -25.4 mmol/L (-2.0-3.0); ABG OXYGEN SATURATION 99.7 % (94.0-98.0); ABG PCO2 15.7 mmHg (32.0-45.0); ABG PH 7.015 (7.350-7.450); ABG PO2 307.9 mmHg (83.0-108.0); ABG TOTAL HEMOGLOBIN 12.7 G/dL (12.0-16.0); COHb 0.2 % (0.5-1.5); MetHb 0.3 % (0.0-1.5); O2Hb 99.2 % (94.0-97.0); PEEP,BG 5 cm H2O; SITE, ABG RIGHT BRACHIAL; VT, ABG 400 mL
[2024-04-03 18:46] LABS: ABG BASE EXCESS -15.1 mmol/L (-2.0-3.0); ABG PCO2 16.8 mmHg (32.0-45.0); ABG PH 7.319 (7.350-7.450); ABG PO2 164.1 mmHg (83.0-108.0); ABG TOTAL HEMOGLOBIN 13.2 G/dL (12.0-16.0); COHb 0.1 % (0.5-1.5); MetHb 0.3 % (0.0-1.5); O2Hb 98.6 % (94.0-97.0); PEEP,BG 0 cm H2O; SITE, ABG RIGHT BRACHIAL; VT, ABG 450 mL
[2024-04-03] MEDS: VANCOMYCIN 750 MG in IV D5W 250 ML IV SCH (19:53)
[2024-04-03 20:58] LABS: CALCIUM, SERUM 6.1 mg/dL (8.5-10.1); CREATININE 0.8 mg/dL (0.6-1.3)
[2024-04-03 21:06] LABS: POTASSIUM 2.3 mmol/L (3.5-5.1)
[2024-04-03 21:34] LABS: CALCIUM, SERUM 8.8 mg/dL (8.5-10.1); CREATININE 1.2 mg/dL (0.6-1.3); POTASSIUM 3.1 mmol/L (3.5-5.1)
[2024-04-03] MEDS ORDERED: FLUCONAZOLE IN NS 100 ML IV ONE (23:08)
[2024-04-03] MEDS: FLUCONAZOLE IN NS 100 MG in PREMIX 1 EA IV SCH (23:27)
[2024-04-04] VITALS (71 sets, daily range): BP systolic 91–139; BP diastolic 37–51; TEMP 97.5–98.6; O2SAT 98–100
[2024-04-04 01:40] LABS: POTASSIUM 3.2 mmol/L (3.5-5.1)
[2024-04-04 02:09] LABS: CREATININE 1.1 mg/dL (0.6-1.3)
[2024-04-04] MEDS ORDERED: IV PREMIX D5 1/2NS + KCL 1,000 ML IV ONE (03:30)
[2024-04-04 04:03] LABS: BASOPHILS # (AUTO) 0.1 K/uL (0.0-0.2); BASOPHILS % (AUTO) 0.8 % (0.0-2.0); EOSINOPHILS # (AUTO) 0.2 K/uL (0.0-0.7); EOSINOPHILS % (AUTO) 1.1 % (0.0-6.0); HEMATOCRIT 36 % (33-45); HEMOGLOBIN 12.1 g/dL (11.5-14.8); LYMPHOCYTES # (AUTO) 0.7 K/uL (0.8-4.8); LYMPHOCYTES % (AUTO) 3.7 % (20.0-44.0); MEAN CORPUSCULAR HEMOGLOBIN 29 PG (26.0-33.0); MEAN CORPUSCULAR HGB CONC 33 g/dl (31.0-36.0); MEAN CORPUSCULAR VOLUME 88 fL (82-100); MONOCYTES # (AUTO) 1.1 K/uL (0.1-1.30); NEUTROPHILS # (AUTO) 16.6 K/uL (1.8-8.9); NEUTROPHILS % (AUTO) 88.4 % (43.0-81.0); PLATELET COUNT (AUTO) 321 K/uL (150-450); RED BLOOD CELL COUNT(AUTO) 4.13 MIL/uL (4.0-5.2); RED CELL DISTRIBUTION WIDTH 18.6 % (11.5-15.0); WHITE BLOOD COUNT (AUTO) 18.7 K/uL (4.3-11.0)
[2024-04-04] MEDS: Potassium Chloride 20 MEQ in IV D5/0.45 NACL 1,000 ML IV PRN (04:03)
[2024-04-04 05:27] LABS: EOSINOPHILS % (MANUAL) 1 % (0-4); LYMPHOCYTES % (MANUAL) 7 % (16-48); MONOCYTES % (MANUAL) 2 % (0-11.0); NEUTROPHILS % (MANUAL) 90 (42-76)
[2024-04-04 05:30] LABS: ANISOCYTOSIS 1+
[2024-04-04 05:33] LABS: PLATELET ESTIMATE ADEQUATE
[2024-04-04 06:33] LABS: CREATININE 1.1 mg/dL (0.6-1.3); MAGNESIUM 1.8 mg/dL (1.8-2.4); POTASSIUM 3.6 mmol/L (3.5-5.1)
[2024-04-04 06:39] LABS: PHOSPHORUS 0.6 mg/dL (2.5-4.9)
[2024-04-04 08:02] LABS: ABG BASE EXCESS -1.9 mmol/L (-2.0-3.0); ABG OXYGEN SATURATION 98.7 % (94.0-98.0); ABG PCO2 22.9 mmHg (32.0-45.0); ABG PH 7.533 (7.350-7.450); ABG PO2 120.3 mmHg (83.0-108.0); ABG TOTAL HEMOGLOBIN 13.4 G/dL (12.0-16.0); COHb 0.7 % (0.5-1.5); MetHb 0.3 % (0.0-1.5); O2Hb 97.7 % (94.0-97.0); PEEP,BG 0 cm H2O; SITE, ABG RIGHT RADIAL; VT, ABG 425 mL
[2024-04-04] MEDS: POTASSIUM PHOSPHATE MM 7.5 MMOL in IV NS 0.9% 100 ML IV SCH (08:27)
[2024-04-04] MEDS: NEUTRA PHOS 1 POWD.PACKET PO SCH (09:54)
[2024-04-04] MEDS: TICAGRELOR 90 MG TABLET NG SCH (11:24)
[2024-04-04 12:33] LABS: CALCIUM, SERUM 8.2 mg/dL (8.5-10.1); CREATININE 1.1 mg/dL (0.6-1.3); POTASSIUM 3.7 mmol/L (3.5-5.1)
[2024-04-04] MEDS ORDERED: DEXTROSE 50%-WATER 50 ML DISP.SYRIN IV PRN (14:00)
[2024-04-04] MEDS: Z GUARD REMEDY 4 OZ OINT TP PRN (16:16)
[2024-04-04] MEDS: FREE WATER VIA TUBE FEEDING GT SCH (16:17)
[2024-04-04] MEDS: INSULIN REGULAR, HUMAN 100 UNIT/ML 3 ML VIAL SQ PRN (17:13)
[2024-04-04] MEDS: GLUCERNA 1.2 1,000 ML BOTTLE NG PRN (17:14)
[2024-04-04] MEDS: BLOOD SUGAR DIAGNOSTIC 1 EACH STRIP IN SCH (17:14)
[2024-04-04] MEDS: INSULIN GLARGINE, 100 UNIT/ML CARTRIDGE SQ SCH (22:24)
[2024-04-04] MEDS: IV NS 0.9% 250 ML IV PRN (23:19)
[2024-04-05] VITALS (34 sets, daily range): BP systolic 110–153; BP diastolic 25–114; TEMP 97.8–98.6; O2SAT 100
[2024-04-05 05:19] LABS: CALCIUM, SERUM 7.8 mg/dL (8.5-10.1); CREATININE 0.9 mg/dL (0.6-1.3); POTASSIUM 3.2 mmol/L (3.5-5.1)
[2024-04-05 09:28] LABS: ABG BASE EXCESS -3.1 mmol/L (-2.0-3.0); ABG OXYGEN SATURATION 98.9 % (94.0-98.0); ABG PCO2 29.3 mmHg (32.0-45.0); ABG PO2 151.9 mmHg (83.0-108.0); ABG TOTAL HEMOGLOBIN 11.3 G/dL (12.0-16.0); COHb 0.3 % (0.5-1.5); MetHb 0.2 % (0.0-1.5); O2Hb 98.4 % (94.0-97.0); PEEP,BG 5 cm H2O; SITE, ABG RIGHT RADIAL; VT, ABG 400 mL
[2024-04-05 17:20] LABS: APPEARANCE,URINE CLOUDY (CLEAR); BILIRUBIN,URINE NEGATIVE (NEGATIVE); BLOOD, URINE NEGATIVE Ery/uL (NEGATIVE); COLOR,URINE YELLOW (YELLOW); KETONES,URINE 1+ mg/dL (NEGATIVE); LEUKOCYTE ESTERASE ,URINE 1+ (NEGATIVE); NITRITE, URINE NEGATIVE (NEGATIVE); PROTEIN,URINE 2+ mg/dl (NEGATIVE); UGLUCOSE TRACE mg/dL (NEGATIVE); UROBILINOGEN,URINE 0.2 EU/dL (0.2)
[2024-04-05 17:35] LABS: ADD URINE CULTURE YES; BACTERIA,URINE 2+ /HPF (None Seen); RBC,URINE 0-2 /HPF (0-2)
[2024-04-05 17:36] LABS: URINE AMORPHOUS URATE Moderate /HPF (None Seen)
[2024-04-05 17:53] LABS: URINE TOTAL PROTEIN 111.2 mg/dL (0-11.9)
[2024-04-05 18:52] LABS: EOSINOPHIL,URINE None Seen
[2024-04-05] MEDS ORDERED: HYDROCODONE/APAP 5/325MG TABLET NG ONE (20:30)
[2024-04-05] MEDS: NYSTATIN TOP POWDER 15 GM BOTTLE TP SCH (21:00)
[2024-04-05] MEDS: KETOROLAC TROMETHAMINE 15 MG/ML VIAL IV ONE (21:25)
[2024-04-05] MEDS: VANCOMYCIN 750 MG in IV D5W 250 ML IV ONE (21:51)
[2024-04-05] MEDS: VANCOMYCIN 1 GM /D5W 250 ML PB IV ONE (21:51)
[2024-04-06] VITALS (18 sets, daily range): BP systolic 98–140; BP diastolic 47–80; TEMP 97–98.2; O2SAT 99–100
[2024-04-06 06:00] LABS: CREATININE 0.5 mg/dL (0.6-1.3); POTASSIUM 3.4 mmol/L (3.5-5.1)
[2024-04-06 08:17] LABS: BASOPHILS % (AUTO) 0.7 % (0.0-2.0); EOSINOPHILS # (AUTO) 0.5 K/uL (0.0-0.7); EOSINOPHILS % (AUTO) 7.8 % (0.0-6.0); HEMATOCRIT 33 % (33-45); HEMOGLOBIN 11.1 g/dL (11.5-14.8); LYMPHOCYTES # (AUTO) 0.7 K/uL (0.8-4.8); LYMPHOCYTES % (AUTO) 10.8 % (20.0-44.0); MEAN CORPUSCULAR HEMOGLOBIN 29 PG (26.0-33.0); MEAN CORPUSCULAR HGB CONC 33 g/dl (31.0-36.0); MEAN CORPUSCULAR VOLUME 88 fL (82-100); MONOCYTES # (AUTO) 0.5 K/uL (0.1-1.30); MONOCYTES % (AUTO) 7.9 % (2.0-12.0); NEUTROPHILS # (AUTO) 4.8 K/uL (1.8-8.9); NEUTROPHILS % (AUTO) 72.8 % (43.0-81.0); PLATELET COUNT (AUTO) 155 K/uL (150-450); RED BLOOD CELL COUNT(AUTO) 3.81 MIL/uL (4.0-5.2); RED CELL DISTRIBUTION WIDTH 20.3 % (11.5-15.0); WHITE BLOOD COUNT (AUTO) 6.6 K/uL (4.3-11.0)
[2024-04-06] MEDS: POTASSIUM CL. PREMIX PERIPHER. 50 ML IV SCH (08:26)
[2024-04-06] MEDS: VANCOMYCIN 500 MG in IV D5W 100ml IV SCH (09:01)
[2024-04-06] MEDS: ACETAMINOPHEN 325 MG TABLET PO PRN (16:17)
[2024-04-07] VITALS: BP 113/54; TEMP 97.9; O2SAT 99
[2024-04-07 04:00] VITALS: BP 106/61; TEMP 98.1
[2024-04-07 08:00] VITALS: BP 121/59; TEMP 97.5; O2SAT 99
[2024-04-07 08:13] LABS: CALCIUM, SERUM 8.7 mg/dL (8.5-10.1); CREATININE 0.6 mg/dL (0.6-1.3); MAGNESIUM 1.8 mg/dL (1.8-2.4); PHOSPHORUS 1.7 mg/dL (2.5-4.9); POTASSIUM 4.9 mmol/L (3.5-5.1)
[2024-04-07] MEDS ORDERED: NA PHOS,M-B/NA PHOS,DI-BA 1 EA ENEMA RC PRN (10:30)
[2024-04-07] MEDS ORDERED: BISACODYL SUPP (10 MG) 10 MG/SUPP.RECT SUPP.RECT RC PRN (10:30)
[2024-04-07] MEDS: SUCRALFATE 1 G TABLET PO SCH (11:05)
[2024-04-07] MEDS: NEUTRA PHOS 1 POWD.PACKET PO SCH (11:05)
[2024-04-07 11:08] LABS: BASOPHILS % (AUTO) 0.7 % (0.0-2.0); EOSINOPHILS # (AUTO) 0.6 K/uL (0.0-0.7); EOSINOPHILS % (AUTO) 9.6 % (0.0-6.0); HEMATOCRIT 36 % (33-45); HEMOGLOBIN 12.1 g/dL (11.5-14.8); LYMPHOCYTES # (AUTO) 0.8 K/uL (0.8-4.8); MEAN CORPUSCULAR HEMOGLOBIN 30 PG (26.0-33.0); MEAN CORPUSCULAR HGB CONC 34 g/dl (31.0-36.0); MEAN CORPUSCULAR VOLUME 88 fL (82-100); MONOCYTES # (AUTO) 0.6 K/uL (0.1-1.30); MONOCYTES % (AUTO) 9.7 % (2.0-12.0); NEUTROPHILS # (AUTO) 4.2 K/uL (1.8-8.9); PLATELET COUNT (AUTO) 130 K/uL (150-450); RED BLOOD CELL COUNT(AUTO) 4.06 MIL/uL (4.0-5.2); RED CELL DISTRIBUTION WIDTH 20.2 % (11.5-15.0); WHITE BLOOD COUNT (AUTO) 6.3 K/uL (4.3-11.0)
[2024-04-07] MEDS ORDERED: ALBUTEROL FS 2.5 MG/3 ML VIAL.NEB IH PRN (11:30)
[2024-04-07 12:00] VITALS: BP 109/65; TEMP 97.6; O2SAT 100
[2024-04-07] MEDS: ISOSORBIDE DINITRATE (20MG) 20 MG TABLET PO SCH (12:34)
[2024-04-07] MEDS: GABAPENTIN 300 MG CAPSULE PO SCH (12:34)
[2024-04-07] MEDS: THERAHONEY GEL 1.5 OZ TUBE TP SCH (13:09)
[2024-04-07 16:00] VITALS: BP 129/59; TEMP 97.5; O2SAT 97
[2024-04-07] MEDS: PANTOPRAZOLE 40 MG TABLET.DR PO SCH (16:56)
[2024-04-07] MEDS: RANOLAZINE 500 MG TAB.ER.12H PO SCH (16:56)
[2024-04-07] MEDS ORDERED: TICAGRELOR 90 MG TABLET PO SCH (17:00)
[2024-04-07] MEDS: VANCOMYCIN 500 MG in IV D5W 100ml IV SCH (19:46)
[2024-04-07 20:00] VITALS: BP 110/65; TEMP 98.1; O2SAT 99
[2024-04-08] VITALS: BP 116/63; TEMP 98.6; O2SAT 100
[2024-04-08 04:00] VITALS: BP 127/70; TEMP 98.1; O2SAT 98
[2024-04-08 08:00] VITALS: BP 129/53; TEMP 98.4; O2SAT 98
[2024-04-08 08:19] LABS: CALCIUM, SERUM 8.6 mg/dL (8.5-10.1); CREATININE 0.5 mg/dL (0.6-1.3); POTASSIUM 3.9 mmol/L (3.5-5.1)
[2024-04-08] MEDS: FLUCONAZOLE (100 MG) 100 MG TABLET PO SCH (08:31)
[2024-04-08] MEDS: ASPIRIN 81 MG TAB.CHEW PO SCH (08:31)
[2024-04-08] MEDS: LEVOTHYROXINE SODIUM 112 MCG TABLET PO SCH (08:31)
[2024-04-08] MEDS ORDERED: CEFE2FRO IV (11:14)
[2024-04-08 11:42] LABS: MAGNESIUM 1.6 mg/dL (1.8-2.4); PHOSPHORUS 2.6 mg/dL (2.5-4.9)
[2024-04-08 12:00] VITALS: BP 111/57; TEMP 97.2; O2SAT 99
[2024-04-08 16:00] VITALS: BP 101/63; TEMP 97.9; O2SAT 99
[2024-04-08 16:55] VITALS: BP 101/63
== END 2024-04-09 | DRG 720 ==
LOC: ER 05:27 → ICU 10:26 → TELE1 04-06 09:49 → MEDSG1 04-08 14:01
PROVIDERS: ADMIT Internal Medicine; ATTEND Internal Medicine
PROC: 5A1945Z Respiratory Ventilation, 24-96 Consecutive Hours (ICD-10-PCS; principal; 2024-04-03)
PROC: 02HV33Z Insertion of Infusion Device into Superior Vena Cava, Percutaneous Approach (ICD-10-PCS; 2024-04-03)
PROC: B548ZZA Ultrasonography of Superior Vena Cava, Guidance (ICD-10-PCS; 2024-04-03)
PROC: 30233N1 Transfusion of Nonautologous Red Blood Cells into Peripheral Vein, Percutaneous Approach (ICD-10-PCS; 2024-04-03)
DX: A41.9 Sepsis, unspecified organism (principal); J96.01 Acute respiratory failure with hypoxia; I50.23 Acute on chronic systolic (congestive) heart failure; G93.41 Metabolic encephalopathy; E10.10 Type 1 diabetes mellitus with ketoacidosis without coma; J15.69 Pneumonia due to other Gram-negative bacteria; I11.0 Hypertensive heart disease with heart failure; E10.40 Type 1 diabetes mellitus with diabetic neuropathy, unspecified; J44.0 Chronic obstructive pulmonary disease with (acute) lower respiratory infection; I25.10 Atherosclerotic heart disease of native coronary artery without angina pectoris; Z20.822 Contact with and (suspected) exposure to COVID-19; Z95.5 Presence of coronary angioplasty implant and graft; E78.5 Hyperlipidemia, unspecified; Z95.1 Presence of aortocoronary bypass graft; Y95 Nosocomial condition; Z51.5 Encounter for palliative care; Z88.6 Allergy status to analgesic agent; Z91.013 Allergy to seafood; Z79.51 Long term (current) use of inhaled steroids; Z79.890 Hormone replacement therapy; Z79.82 Long term (current) use of aspirin; Z79.4 Long term (current) use of insulin; Z79.899 Other long term (current) drug therapy; M89.8X9 Other specified disorders of bone, unspecified site; E87.0 Hyperosmolality and hypernatremia; E86.1 Hypovolemia; E83.51 Hypocalcemia; E88.09 Other disorders of plasma-protein metabolism, not elsewhere classified; L74.0 Miliaria rubra; E86.0 Dehydration; E83.39 Other disorders of phosphorus metabolism; E87.6 Hypokalemia; N39.0 Urinary tract infection, site not specified; Z79.02 Long term (current) use of antithrombotics/antiplatelets; D53.9 Nutritional anemia, unspecified; M84.44 Pathological fracture, hand and fingers
CPT/HCPCS: 31720; 36415; 36569; 36600; 70450-TC; 71045-TC; 73070-TC; 73090-TC; 73100-TC; 73120-TC; 76770-TC; 80048-TC; 80076-TC; 80202-TC; 81001; 82010-TC; 82310-TC; 82570-TC; 82607-TC; 82803-TC; 82962-TC; 83605-TC; 83690-TC; 83735-TC; 83880; 83935-TC; 84100-TC; 84300-TC; 84484-TC; 85025-TC; 85730-TC; 86850-TC; 87040-TC; 87086-TC; 93307-TC; 94002-TC; 94003-TC; 94799-TC; 97110-TC; 97530-TC; 97535-TC; 99082-TC; A4216; A4223; G0378; J0612; J0692; J1450; J1815; J1885; J2543; J3370; J3371; J3480; J3490; J7030; J7040; J7050; J7060; P9016

== ENCOUNTER 2024-04-12 05:23 | Emergency (ER) | payer OTHER ==
[~2024-04-12] VITALS: Ht 162.6 cm; Wt 66.2 kg
[~2024-04-12 05:23] MED LIST: ALBU8.5H8 IH; AMLO2.5T2 PO; ASPI-1169 PO; ATOR20TA PO; BISA10SU11 RC; CEFE2FRO IV; FLUT12AE IH; GABA300C PO; INSU100I34 SQ; INSU100V7 SQ; ISOS20TA8 PO; LEVO112T5 PO; MAGN400O6 PO; METO-358 PO; METO5TAB87 PO; NA P133E RC; NITR0.4T48 SL; ONDA4TAB5 PO; PANT40TA2 PO; RANO500T6 PO; SUCR1TAB PO; TICA90TA PO
[2024-04-12 10:11] VITALS: BP 138/60; TEMP 97.7; O2SAT 97
== END 2024-04-12 10:32 | disposition home health service (06) ==
LOC: ER 05:30
DX: R09.02 Hypoxemia (principal); E03.9 Hypothyroidism, unspecified; E10.40 Type 1 diabetes mellitus with diabetic neuropathy, unspecified; E78.5 Hyperlipidemia, unspecified; I11.0 Hypertensive heart disease with heart failure; I50.9 Heart failure, unspecified; I25.10 Atherosclerotic heart disease of native coronary artery without angina pectoris; J44.9 Chronic obstructive pulmonary disease, unspecified; Z79.02 Long term (current) use of antithrombotics/antiplatelets; Z79.51 Long term (current) use of inhaled steroids; Z79.82 Long term (current) use of aspirin; Z79.890 Hormone replacement therapy; Z79.899 Other long term (current) drug therapy; Z88.6 Allergy status to analgesic agent; Z95.1 Presence of aortocoronary bypass graft; Z95.5 Presence of coronary angioplasty implant and graft; Z99.81 Dependence on supplemental oxygen

== ENCOUNTER 2024-05-04 18:12 | Inpatient (IN) | payer OTHER ==
[~2024-05-04] VITALS: Ht 167.6 cm; Wt 58.1 kg
[~2024-05-04 18:12] MED LIST changes: +COLL30OI TP; +MICA100V3 IV
[2024-05-04] MEDS: IV NS 0.9% 1,000 ML BAG IV ONE (19:00)
[2024-05-04] MEDS: VANCOMYCIN 1 GM in IV D5W 250 ML IV ONE (19:00)
[2024-05-04] MEDS: CEFEPIME 1 GM in IV D5W 50 ML IV ONE (19:00)
[2024-05-04 19:47] LABS: APPEARANCE,URINE SLIGHTLY CLOUDY (CLEAR); COLOR,URINE BROWN (YELLOW)
[2024-05-04 19:53] LABS: BACTERIA,URINE RARE /HPF (None Seen); MUCUS,URINE Few /LPF (None Seen)
[2024-05-04] MEDS ORDERED: VANCOMYCIN 1 GM /D5W 250 ML PB IV ONE (20:08)
[2024-05-04 21:01] LABS: ALANINE AMINOTRANSFERASE 20 U/L (12-78); ALBUMIN 2.5 g/dL (3.4-5.0); ALKALINE PHOSPHATASE 151 U/L (46-116); ASPARTATE AMINOTRANSFERASE 33 U/L (15-37); BILIRUBIN,DIRECT 0.3 mg/dL (0.0-0.2); BILIRUBIN,TOTAL 0.8 mg/dL (0.2-1.0); CALCIUM, SERUM 9.7 mg/dL (8.5-10.1); CARBON DIOXIDE 29 mmol/L (21-32); CHLORIDE 104 mmol/L (98-107); CREATININE 0.8 mg/dL (0.6-1.3); GLUCOSE 107 mg/dL (74-106); POTASSIUM 4.4 mmol/L (3.5-5.1); SODIUM SERUM 137 mmol/L (136-145); TOTAL PROTEIN, SERUM 5.4 g/dL (6.4-8.2); UREA NITROGEN, BLOOD 11 mg/dL (7-18)
[2024-05-04 21:05] LABS: BASOPHILS % (AUTO) 0.2 % (0.0-2.0); EOSINOPHILS # (AUTO) 0.2 K/uL (0.0-0.7); EOSINOPHILS % (AUTO) 2.6 % (0.0-6.0); HEMATOCRIT 32 % (33-45); HEMOGLOBIN 10.8 g/dL (11.5-14.8); LYMPHOCYTES # (AUTO) 0.6 K/uL (0.8-4.8); LYMPHOCYTES % (AUTO) 8.7 % (20.0-44.0); MEAN CORPUSCULAR HEMOGLOBIN 31 PG (26.0-33.0); MEAN CORPUSCULAR HGB CONC 33 g/dl (31.0-36.0); MEAN CORPUSCULAR VOLUME 93 fL (82-100); MONOCYTES # (AUTO) 0.3 K/uL (0.1-1.30); MONOCYTES % (AUTO) 4.5 % (2.0-12.0); NEUTROPHILS # (AUTO) 5.7 K/uL (1.8-8.9); PLATELET COUNT (AUTO) 353 K/uL (150-450); RED BLOOD CELL COUNT(AUTO) 3.46 MIL/uL (4.0-5.2); RED CELL DISTRIBUTION WIDTH 19.8 % (11.5-15.0); WHITE BLOOD COUNT (AUTO) 6.8 K/uL (4.3-11.0)
[2024-05-04 21:12] LABS: INR 1.04 (0.91-1.10)
[2024-05-04] MEDS: ENOXAPARIN SODIUM 60 MG/0.6 ML DISP.SYRIN SQ ONE (22:16)
[2024-05-04 22:25] LABS: LYMPHOCYTES % (MANUAL) 6 % (16-48); MONOCYTES % (MANUAL) 3 % (0-11.0); NEUTROPHILS % (MANUAL) 91 (42-76)
[2024-05-04 22:26] LABS: ANISOCYTOSIS 1+; PLATELET ESTIMATE ADEQUATE
[2024-05-04] MEDS ORDERED: ONDANSETRON HCL/PF 4 MG/2 ML VIAL IVP PRN (23:00)
[2024-05-04] MEDS ORDERED: Z GUARD REMEDY 4 OZ OINT TP PRN (23:00)
[2024-05-04] MEDS ORDERED: MAGNESIUM HYDROXIDE 30 ML UDC PO PRN (23:00)
[2024-05-04] MEDS ORDERED: ENOXAPARIN SODIUM 40 MG/0.4 ML DISP.SYRIN SQ SCH (23:00)
[2024-05-04] MEDS ORDERED: MAG HYDROX/AL HYDROX/SIMETH 30 ML UDC PO PRN (23:00)
[2024-05-04] MEDS ORDERED: DEXTROSE 50%-WATER 50 ML DISP.SYRIN IV PRN (23:00)
[2024-05-05] VITALS (47 sets, daily range): BP systolic 84–142; BP diastolic 28–95; TEMP 98.2–99.7; O2SAT 98–100
[2024-05-05] MEDS: PANTOPRAZOLE 40 MG VIAL IV SCH (00:42)
[2024-05-05] MEDS: IV D5/ 0.9% NACL 1,000 ML IV PRN (00:45)
[2024-05-05 07:26] LABS: CALCIUM, SERUM 8.7 mg/dL (8.5-10.1); CREATININE 0.8 mg/dL (0.6-1.3); MAGNESIUM 1.9 mg/dL (1.8-2.4); PHOSPHORUS 3.4 mg/dL (2.5-4.9); POTASSIUM 4.5 mmol/L (3.5-5.1)
[2024-05-05] MEDS: VANCOMYCIN 1 GM in IV D5W 250ml IV SCH (07:48)
[2024-05-05] MEDS: BLOOD SUGAR DIAGNOSTIC 1 EACH STRIP IN SCH ×2 (07:48→17:28)
[2024-05-05] MEDS: INSULIN REGULAR, HUMAN 100 UNIT/ML 3 ML VIAL SQ PRN ×2 (07:48→17:45)
[2024-05-05 08:22] LABS: BASOPHILS % (AUTO) 0.2 % (0.0-2.0); LYMPHOCYTES # (AUTO) 0.8 K/uL (0.8-4.8); MEAN CORPUSCULAR HGB CONC 33 g/dl (31.0-36.0)
[2024-05-05] MEDS ORDERED: ACET-73 PO (08:26)
[2024-05-05] MEDS ORDERED: LOSA25TA27 PO (08:26)
[2024-05-05] MEDS ORDERED: ACET325T53 PO (08:26)
[2024-05-05] MEDS ORDERED: INSU100I40 SQ ×2 (08:26)
[2024-05-05] MEDS ORDERED: ASCO500T21 PO (08:26)
[2024-05-05] MEDS ORDERED: MULT-213 PO (08:26)
[2024-05-05] MEDS ORDERED: CLOP75TA15 PO (08:26)
[2024-05-05 08:31] LABS: EOSINOPHILS % (AUTO) 0.2 % (0.0-6.0); HEMATOCRIT 29 % (33-45); HEMOGLOBIN 9.6 g/dL (11.5-14.8); LYMPHOCYTES % (AUTO) 4.7 % (20.0-44.0); MEAN CORPUSCULAR HEMOGLOBIN 31 PG (26.0-33.0); MEAN CORPUSCULAR VOLUME 95 fL (82-100); MONOCYTES # (AUTO) 1.7 K/uL (0.1-1.30); MONOCYTES % (AUTO) 10.3 % (2.0-12.0); NEUTROPHILS # (AUTO) 14.1 K/uL (1.8-8.9); NEUTROPHILS % (AUTO) 84.6 % (43.0-81.0); PLATELET COUNT (AUTO) 248 K/uL (150-450); RED BLOOD CELL COUNT(AUTO) 3.09 MIL/uL (4.0-5.2); RED CELL DISTRIBUTION WIDTH 20.2 % (11.5-15.0); WHITE BLOOD COUNT (AUTO) 16.7 K/uL (4.3-11.0)
[2024-05-05] MEDS: IV NS 0.9% 1,000 ML IV PRN (10:47)
[2024-05-05] MEDS: THERAHONEY GEL 1.5 OZ TUBE TP SCH (10:48)
[2024-05-05] MEDS: IV NS 0.9% 250 ML IV ONE (10:48)
[2024-05-05] MEDS: CEFEPIME 1 GM in IV D5W 50 ML IV SCH (10:48)
[2024-05-05] MEDS: SUCRALFATE 1 G TABLET PO SCH (12:00)
[2024-05-05] MEDS: GABAPENTIN 300 MG CAPSULE PO SCH (13:00)
[2024-05-05] MEDS: NOREPINEPHRINE 8 MG in IV D5W 242 ML IV PRN (13:22)
[2024-05-05] MEDS: METRONIDAZOLE 500MG/ NS 100ML 500 MG in PREMIX 1 EA IV SCH (14:25)
[2024-05-05] MEDS: VANCOMYCIN HCL 125 MG/2.5 ML ORAL.SUSP PO SCH (17:56)
[2024-05-05 19:13] LABS: OCCULT BLOOD STOOL POSITIVE (NEGATIVE)
[2024-05-05] MEDS: ATORVASTATIN 10 MG TABLET PO SCH (21:28)
[2024-05-05] MEDS: ENOXAPARIN SODIUM 40 MG/0.4 ML DISP.SYRIN SQ SCH (21:31)
[2024-05-05] MEDS: ACETAMINOPHEN 325 MG TABLET PO PRN (23:50)
[2024-05-06] VITALS (56 sets, daily range): BP systolic 91–121; BP diastolic 28–60; TEMP 98.4–99.2; O2SAT 98–100
[2024-05-06 07:20] LABS: BASOPHILS # (AUTO) 0.1 K/uL (0.0-0.2); BASOPHILS % (AUTO) 0.3 % (0.0-2.0); EOSINOPHILS # (AUTO) 0.2 K/uL (0.0-0.7); HEMATOCRIT 29 % (33-45); HEMOGLOBIN 9.6 g/dL (11.5-14.8); LYMPHOCYTES # (AUTO) 0.8 K/uL (0.8-4.8); LYMPHOCYTES % (AUTO) 3.5 % (20.0-44.0); MEAN CORPUSCULAR HEMOGLOBIN 31 PG (26.0-33.0); MEAN CORPUSCULAR HGB CONC 33 g/dl (31.0-36.0); MEAN CORPUSCULAR VOLUME 93 fL (82-100); MONOCYTES # (AUTO) 1.3 K/uL (0.1-1.30); MONOCYTES % (AUTO) 5.8 % (2.0-12.0); NEUTROPHILS # (AUTO) 19.9 K/uL (1.8-8.9); NEUTROPHILS % (AUTO) 89.4 % (43.0-81.0); PLATELET COUNT (AUTO) 325 K/uL (150-450); RED BLOOD CELL COUNT(AUTO) 3.13 MIL/uL (4.0-5.2); RED CELL DISTRIBUTION WIDTH 20.1 % (11.5-15.0); WHITE BLOOD COUNT (AUTO) 22.3 K/uL (4.3-11.0)
[2024-05-06 07:42] LABS: CALCIUM, SERUM 7.8 mg/dL (8.5-10.1); CREATININE 0.7 mg/dL (0.6-1.3); POTASSIUM 4.3 mmol/L (3.5-5.1)
[2024-05-06] MEDS: FLUTICASONE/VILANTEROL 1 EACH BLST.W.DEV IH SCH (08:59)
[2024-05-06] MEDS: HYDROCORTISONE SOD SUCCINATE 100 MG/2 ML VIAL IV SCH (09:00)
[2024-05-06] MEDS: LEVOTHYROXINE SODIUM 112 MCG TABLET PO SCH (09:01)
[2024-05-06] MEDS: PANTOPRAZOLE 40 MG VIAL IV SCH (20:20)
[2024-05-07] VITALS (55 sets, daily range): BP systolic 75–167; BP diastolic 33–98; TEMP 98–98.7; O2SAT 98–100
[2024-05-07 04:28] LABS: BASOPHILS % (AUTO) 0.1 % (0.0-2.0); HEMATOCRIT 33 % (33-45); HEMOGLOBIN 10.7 g/dL (11.5-14.8); LYMPHOCYTES # (AUTO) 0.5 K/uL (0.8-4.8); LYMPHOCYTES % (AUTO) 1.8 % (20.0-44.0); MEAN CORPUSCULAR HEMOGLOBIN 30 PG (26.0-33.0); MEAN CORPUSCULAR HGB CONC 32 g/dl (31.0-36.0); MEAN CORPUSCULAR VOLUME 93 fL (82-100); MONOCYTES # (AUTO) 0.6 K/uL (0.1-1.30); MONOCYTES % (AUTO) 2.2 % (2.0-12.0); NEUTROPHILS # (AUTO) 24.4 K/uL (1.8-8.9); NEUTROPHILS % (AUTO) 95.9 % (43.0-81.0); PLATELET COUNT (AUTO) 463 K/uL (150-450); RED BLOOD CELL COUNT(AUTO) 3.59 MIL/uL (4.0-5.2); RED CELL DISTRIBUTION WIDTH 20.1 % (11.5-15.0); WHITE BLOOD COUNT (AUTO) 25.5 K/uL (4.3-11.0)
[2024-05-07 04:42] LABS: CALCIUM, SERUM 8.2 mg/dL (8.5-10.1); CREATININE 0.7 mg/dL (0.6-1.3); POTASSIUM 4.2 mmol/L (3.5-5.1)
[2024-05-07] MEDS: ACIDOPHILUS/BULGARICUS 1 EACH TAB.CHEW PO SCH (12:37)
[2024-05-07] MEDS: TRAMADOL HCL 50 MG TABLET PO SCH (12:48)
[2024-05-07] MEDS ORDERED: ACIDOPHILUS/BULGARICUS 1 EACH GRAN.PACK PO SCH (13:00)
[2024-05-07] MEDS: MUPIROCIN OINT 2% 22 GM TUBE NS SCH (14:23)
[2024-05-07] MEDS: PANTOPRAZOLE 40 MG TABLET.DR PO SCH (20:42)
[2024-05-08] VITALS (44 sets, daily range): BP systolic 67–151; BP diastolic 36–58; TEMP 98–98.6; O2SAT 98–100
[2024-05-08 05:16] LABS: HEMATOCRIT 34 % (33-45); HEMOGLOBIN 11.1 g/dL (11.5-14.8); LYMPHOCYTES # (AUTO) 0.6 K/uL (0.8-4.8); MEAN CORPUSCULAR HEMOGLOBIN 30 PG (26.0-33.0); MEAN CORPUSCULAR HGB CONC 33 g/dl (31.0-36.0); MEAN CORPUSCULAR VOLUME 92 fL (82-100); MONOCYTES # (AUTO) 0.8 K/uL (0.1-1.30); MONOCYTES % (AUTO) 2.7 % (2.0-12.0); NEUTROPHILS # (AUTO) 27.4 K/uL (1.8-8.9); NEUTROPHILS % (AUTO) 95.3 % (43.0-81.0); PLATELET COUNT (AUTO) 482 K/uL (150-450); RED BLOOD CELL COUNT(AUTO) 3.64 MIL/uL (4.0-5.2); WHITE BLOOD COUNT (AUTO) 28.8 K/uL (4.3-11.0)
[2024-05-08 05:57] LABS: CALCIUM, SERUM 8.4 mg/dL (8.5-10.1); CREATININE 0.6 mg/dL (0.6-1.3); POTASSIUM 3.8 mmol/L (3.5-5.1)
[2024-05-08] MEDS: CEFEPIME 2 GM in IV D5W 50 ML IV SCH (08:38)
[2024-05-08] MEDS: FLUDROCORTISONE 0.1 MG TABLET PO SCH (08:39)
[2024-05-08] MEDS: VANCOMYCIN 1 GM in IV D5W 250ml IV SCH (10:06)
[2024-05-08] MEDS: MIDODRINE HCL (5MG) 5 MG TABLET PO SCH (13:02)
[2024-05-08] MEDS: VANCOMYCIN HCL 125 MG/2.5 ML ORAL.SUSP PO SCH (17:52)
[2024-05-09] VITALS (26 sets, daily range): BP systolic 82–122; BP diastolic 40–68; TEMP 97.8–98.2; O2SAT 95–100
[2024-05-09 05:21] LABS: HEMATOCRIT 34 % (33-45); HEMOGLOBIN 11.2 g/dL (11.5-14.8); LYMPHOCYTES # (AUTO) 0.6 K/uL (0.8-4.8); LYMPHOCYTES % (AUTO) 5.1 % (20.0-44.0); MEAN CORPUSCULAR HEMOGLOBIN 30 PG (26.0-33.0); MEAN CORPUSCULAR HGB CONC 33 g/dl (31.0-36.0); MEAN CORPUSCULAR VOLUME 93 fL (82-100); MONOCYTES # (AUTO) 0.3 K/uL (0.1-1.30); MONOCYTES % (AUTO) 2.5 % (2.0-12.0); NEUTROPHILS # (AUTO) 10.3 K/uL (1.8-8.9); NEUTROPHILS % (AUTO) 92.4 % (43.0-81.0); PLATELET COUNT (AUTO) 305 K/uL (150-450); RED BLOOD CELL COUNT(AUTO) 3.68 MIL/uL (4.0-5.2); RED CELL DISTRIBUTION WIDTH 18.9 % (11.5-15.0); WHITE BLOOD COUNT (AUTO) 11.1 K/uL (4.3-11.0)
[2024-05-09 05:42] LABS: ALBUMIN 1.5 g/dL (3.4-5.0); BILIRUBIN,DIRECT 0.1 mg/dL (0.0-0.2); BILIRUBIN,TOTAL 0.4 mg/dL (0.2-1.0); CREATININE 0.6 mg/dL (0.6-1.3); POTASSIUM 3.7 mmol/L (3.5-5.1); TOTAL PROTEIN, SERUM 4.2 g/dL (6.4-8.2)
[2024-05-09] MEDS: HYDROCORTISONE SOD SUCCINATE 100 MG/2 ML VIAL IV SCH (12:31)
[2024-05-09] MEDS ORDERED: MORPHINE SULFATE INJ 2 MG/ML DISP.SYRIN IV ONE ×2 (12:45→13:00)
[2024-05-09] MEDS: VANCOMYCIN 750 MG in IV D5W 250 ML IV SCH (23:40)
[2024-05-10] VITALS: BP 112/46; TEMP 98.1; O2SAT 100
[2024-05-10 04:00] VITALS: BP 114/65; TEMP 98.1; O2SAT 100
[2024-05-10 08:00] VITALS: BP 117/52; TEMP 97.5; O2SAT 98
[2024-05-10] MEDS: HYDROCORTISONE SOD SUCCINATE 100 MG/2 ML VIAL IV SCH (11:06)
[2024-05-10 12:00] VITALS: BP 110/53; TEMP 97.5; O2SAT 100
[2024-05-10 15:42] LABS: BASOPHILS % (AUTO) 0.1 % (0.0-2.0); HEMATOCRIT 37 % (33-45); HEMOGLOBIN 12.5 g/dL (11.5-14.8); LYMPHOCYTES # (AUTO) 0.6 K/uL (0.8-4.8); LYMPHOCYTES % (AUTO) 5.2 % (20.0-44.0); MEAN CORPUSCULAR HEMOGLOBIN 31 PG (26.0-33.0); MEAN CORPUSCULAR HGB CONC 33 g/dl (31.0-36.0); MEAN CORPUSCULAR VOLUME 93 fL (82-100); MONOCYTES # (AUTO) 0.4 K/uL (0.1-1.30); NEUTROPHILS # (AUTO) 11.3 K/uL (1.8-8.9); NEUTROPHILS % (AUTO) 91.7 % (43.0-81.0); PLATELET COUNT (AUTO) 360 K/uL (150-450); RED BLOOD CELL COUNT(AUTO) 4.02 MIL/uL (4.0-5.2); RED CELL DISTRIBUTION WIDTH 19.2 % (11.5-15.0); WHITE BLOOD COUNT (AUTO) 12.4 K/uL (4.3-11.0)
[2024-05-10 16:00] VITALS: BP 130/58; TEMP 98.1; O2SAT 100
[2024-05-10] MEDS: VANCOMYCIN 750 MG in IV D5W 250 ML IV SCH (16:55)
[2024-05-10 16:58] LABS: CALCIUM, SERUM 8.6 mg/dL (8.5-10.1); CREATININE 0.8 mg/dL (0.6-1.3); POTASSIUM 3.7 mmol/L (3.5-5.1)
[2024-05-10 20:00] VITALS: BP 109/59; TEMP 97.7; O2SAT 100
[2024-05-10] MEDS: METRONIDAZOLE 500 MG TABLET PO SCH (22:57)
[2024-05-11 04:00] VITALS: BP 110/60; TEMP 97.6
[2024-05-11 07:36] LABS: HEMATOCRIT 38 % (33-45); HEMOGLOBIN 12.2 g/dL (11.5-14.8); LYMPHOCYTES % (AUTO) 7.2 % (20.0-44.0); MEAN CORPUSCULAR HEMOGLOBIN 30 PG (26.0-33.0); MEAN CORPUSCULAR HGB CONC 32 g/dl (31.0-36.0); MEAN CORPUSCULAR VOLUME 93 fL (82-100); MONOCYTES # (AUTO) 0.8 K/uL (0.1-1.30); MONOCYTES % (AUTO) 5.3 % (2.0-12.0); NEUTROPHILS # (AUTO) 12.7 K/uL (1.8-8.9); NEUTROPHILS % (AUTO) 87.5 % (43.0-81.0); PLATELET COUNT (AUTO) 455 K/uL (150-450); RED BLOOD CELL COUNT(AUTO) 4.07 MIL/uL (4.0-5.2); WHITE BLOOD COUNT (AUTO) 14.5 K/uL (4.3-11.0)
[2024-05-11 07:46] LABS: CALCIUM, SERUM 8.8 mg/dL (8.5-10.1); CREATININE 0.7 mg/dL (0.6-1.3); POTASSIUM 4.1 mmol/L (3.5-5.1)
[2024-05-11 08:00] VITALS: BP 149/68; TEMP 98.2; O2SAT 96
[2024-05-11 10:58] LABS: ANISOCYTOSIS 1+; LYMPHOCYTES % (MANUAL) 3 % (16-48); MONOCYTES % (MANUAL) 3 % (0-11.0); NEUTROPHILS % (MANUAL) 94 (42-76); PLATELET ESTIMATE INCREASED
[2024-05-11] MEDS ORDERED: IOHEXOL-300 100 ML VIAL IV ONE (13:03)
[2024-05-11] MEDS: FAMOTIDINE/PF INJ 20 MG/2 ML VIAL IV SCH (14:14)
[2024-05-11 16:00] VITALS: BP 104/54; TEMP 97.7; O2SAT 100
[2024-05-11 20:00] VITALS: BP 118/57; TEMP 98.1; O2SAT 100
[2024-05-12 04:00] VITALS: BP 135/62; TEMP 98; O2SAT 100
[2024-05-12 08:16] VITALS: BP 130/63; TEMP 97.3; O2SAT 100
[2024-05-12 16:27] VITALS: BP 106/58; TEMP 97.7; O2SAT 100
[2024-05-12 20:00] VITALS: BP 119/53; TEMP 97.9; O2SAT 100
[2024-05-13 04:00] VITALS: BP 138/62; TEMP 98.1; O2SAT 100
[2024-05-13 08:00] VITALS: BP 116/68; TEMP 98.1; O2SAT 100
[2024-05-13] MEDS: INSULIN GLARGINE, 100 UNIT/ML CARTRIDGE SQ SCH (09:26)
[2024-05-13 14:00] VITALS: BP 122/68; TEMP 98.8; O2SAT 100
[2024-05-13 16:00] VITALS: BP 142/65; TEMP 98.4; O2SAT 100
[2024-05-13 16:40] LABS: BASOPHILS % (AUTO) 0.2 % (0.0-2.0); EOSINOPHILS % (AUTO) 0.2 % (0.0-6.0); HEMATOCRIT 37 % (33-45); HEMOGLOBIN 12.1 g/dL (11.5-14.8); LYMPHOCYTES # (AUTO) 0.6 K/uL (0.8-4.8); MEAN CORPUSCULAR HEMOGLOBIN 30 PG (26.0-33.0); MEAN CORPUSCULAR HGB CONC 33 g/dl (31.0-36.0); MEAN CORPUSCULAR VOLUME 92 fL (82-100); MONOCYTES # (AUTO) 0.5 K/uL (0.1-1.30); MONOCYTES % (AUTO) 4.4 % (2.0-12.0); NEUTROPHILS # (AUTO) 9.6 K/uL (1.8-8.9); NEUTROPHILS % (AUTO) 89.2 % (43.0-81.0); PLATELET COUNT (AUTO) 416 K/uL (150-450); RED BLOOD CELL COUNT(AUTO) 3.98 MIL/uL (4.0-5.2); WHITE BLOOD COUNT (AUTO) 10.7 K/uL (4.3-11.0)
[2024-05-13 16:50] LABS: CALCIUM, SERUM 8.3 mg/dL (8.5-10.1); CREATININE 0.7 mg/dL (0.6-1.3); POTASSIUM 2.9 mmol/L (3.5-5.1)
[2024-05-13 16:54] LABS: ALBUMIN 1.7 g/dL (3.4-5.0); BILIRUBIN,TOTAL 0.5 mg/dL (0.2-1.0); MAGNESIUM 1.9 mg/dL (1.8-2.4); PHOSPHORUS 1.4 mg/dL (2.5-4.9); TOTAL PROTEIN, SERUM 4.4 g/dL (6.4-8.2)
[2024-05-13 17:17] LABS: BILIRUBIN,DIRECT 0.2 mg/dL (0.0-0.2)
[2024-05-13 20:00] VITALS: BP 110/56; TEMP 97.9; O2SAT 100
[2024-05-13] MEDS ORDERED: POTASSIUM CHLORIDE 10 MEQ/50 ML PREMIXED IVPB FOR PERIPHERAL LINE IV ONE (20:30)
[2024-05-13] MEDS: POTASSIUM CHLORIDE 10 MEQ/50 ML PREMIXED IVPB FOR PERIPHERAL LINE IV SCH (21:07)
[2024-05-14 04:00] VITALS: BP 103/62; TEMP 97.7; O2SAT 100
[2024-05-14 08:00] VITALS: BP 122/62; TEMP 98.4; O2SAT 97
[2024-05-14] MEDS: FAMOTIDINE (20 MG) 20 MG TABLET PO SCH (08:49)
[2024-05-14 10:44] LABS: ALBUMIN 1.6 g/dL (3.4-5.0); BILIRUBIN,TOTAL 0.7 mg/dL (0.2-1.0); CALCIUM, SERUM 8.4 mg/dL (8.5-10.1); CREATININE 0.6 mg/dL (0.6-1.3); POTASSIUM 3.9 mmol/L (3.5-5.1); TOTAL PROTEIN, SERUM 4.4 g/dL (6.4-8.2)
[2024-05-14] MEDS: QUETIAPINE FUMARATE 25 MG TABLET PO PRN (13:04)
[2024-05-14 16:00] VITALS: BP 120/80; TEMP 98.5; O2SAT 98
[2024-05-14 20:00] VITALS: BP 126/58; TEMP 98.1; O2SAT 100
[2024-05-15 04:00] VITALS: BP 133/63; TEMP 97.3; O2SAT 100
[2024-05-15 08:00] VITALS: BP 130/64; TEMP 98.2; O2SAT 100
[2024-05-15] MEDS: predniSONE 20 MG TABLET PO SCH (08:20)
[2024-05-15] MEDS: APIXABAN 5 MG TABLET PO SCH (10:47)
[2024-05-15] MEDS ORDERED: APIX5TAB PO (11:03)
[2024-05-15] MEDS ORDERED: Quetiapine Fumarate PO (11:03)
[2024-05-15] MEDS ORDERED: PRED20TA PO (11:03)
[2024-05-15] MEDS ORDERED: FLUD0.1T3 PO (11:03)
[2024-05-15] MEDS ORDERED: MIDO5TAB4 PO (11:03)
[2024-05-15] MEDS ORDERED: VANC125C11 PO (11:03)
[2024-05-15 16:00] VITALS: BP 144/60; TEMP 98.2; O2SAT 100
[2024-05-15] MEDS: risperiDONE 0.25 MG TABLET PO SCH (18:07)
[2024-05-15 20:00] VITALS: BP 128/65; TEMP 98.4; O2SAT 98
[2024-05-16 04:00] VITALS: BP 144/62; TEMP 98.2; O2SAT 100
[2024-05-16 08:00] VITALS: BP 120/61; TEMP 97.8; O2SAT 100
[2024-05-16 16:00] VITALS: BP 115/66; TEMP 98.2; O2SAT 100
== END 2024-05-16 16:51 | DRG 466 ==
LOC: ER 18:31 → TELE1 22:52 → ICU 05-05 12:00 → TELE1 05-09 17:39 → MEDSG1 05-10 17:38
PROVIDERS: ADMIT Nurse Practitioner Acute Care; ATTEND Internal Medicine
DX: T83.518A Infection and inflammatory reaction due to other urinary catheter, initial encounter (principal); R65.21 Severe sepsis with septic shock; A41.9 Sepsis, unspecified organism; G92.8 Other toxic encephalopathy; I21.A1 Myocardial infarction type 2; E44.0 Moderate protein-calorie malnutrition; A04.72 Enterocolitis due to Clostridium difficile, not specified as recurrent; L89.320 Pressure ulcer of left buttock, unstageable; D68.59 Other primary thrombophilia; E87.20 Acidosis, unspecified; Y84.6 Urinary catheterization as the cause of abnormal reaction of the patient, or of later complication, without mention of misadventure at the time of the procedure; Y92.129 Unspecified place in nursing home as the place of occurrence of the external cause; I11.0 Hypertensive heart disease with heart failure; K52.9 Noninfective gastroenteritis and colitis, unspecified; K80.20 Calculus of gallbladder without cholecystitis without obstruction; I50.32 Chronic diastolic (congestive) heart failure; E10.40 Type 1 diabetes mellitus with diabetic neuropathy, unspecified; I25.10 Atherosclerotic heart disease of native coronary artery without angina pectoris; Z95.1 Presence of aortocoronary bypass graft; Z91.013 Allergy to seafood; Z95.5 Presence of coronary angioplasty implant and graft; Z79.51 Long term (current) use of inhaled steroids; Z79.899 Other long term (current) drug therapy; Z79.890 Hormone replacement therapy; Z79.4 Long term (current) use of insulin; Z79.82 Long term (current) use of aspirin; E03.9 Hypothyroidism, unspecified; E78.5 Hyperlipidemia, unspecified; D63.8 Anemia in other chronic diseases classified elsewhere; E86.1 Hypovolemia; E88.09 Other disorders of plasma-protein metabolism, not elsewhere classified; F39 Unspecified mood [affective] disorder; R41.0 Disorientation, unspecified; K76.0 Fatty (change of) liver, not elsewhere classified; Z86.39 Personal history of other endocrine, nutritional and metabolic disease; Z86.19 Personal history of other infectious and parasitic diseases; J44.9 Chronic obstructive pulmonary disease, unspecified; I82.412 Acute embolism and thrombosis of left femoral vein; K21.9 Gastro-esophageal reflux disease without esophagitis; K43.9 Ventral hernia without obstruction or gangrene; K82.8 Other specified diseases of gallbladder; Z78.9 Other specified health status; Z22.322 Carrier or suspected carrier of Methicillin resistant Staphylococcus aureus; N20.0 Calculus of kidney; Z79.02 Long term (current) use of antithrombotics/antiplatelets; Z88.6 Allergy status to analgesic agent
CPT/HCPCS: 36415; 70450-TC; 71045-TC; 73090-TC; 76705-TC; 78226; 80048-TC; 80053-TC; 80076-TC; 80202-TC; 81001; 82140-TC; 82272-TC; 82533; 82962-TC; 83605-TC; 83690-TC; 83735-TC; 83880; 84100-TC; 84484-TC; 85025-TC; 85730-TC; 87040-TC; 87081-TC; 87086-TC; 92526; 92611-TC; 93971-TC; A4216; A4223; A9537; G0378; J0692; J1650; J1720; J1815; J2470; J3370; J3371; J3480; J3490; J7030; J7042; J7050; J7060; Q9967